=== PATIENT | male | born 1960 | race Caucasian/White ===

== ENCOUNTER 2017-03-28 13:00 | Inpatient (IN) | payer MEDICAID, OTHER, SELFPAY ==
[~2017-03-28] VITALS: Ht 180.3 cm; Wt 65.8 kg
[2017-03-28] MEDS ORDERED: SODIUM CHLORIDE 0.9% 1000 ML IV ONE (14:15)
[2017-03-28] MEDS ORDERED: OXAZEPAM 10 MG CAP PO ONE (14:30)
[2017-03-28] MEDS ORDERED: MULTIVITAMIN -ADULT INJECTION 10 ML, THIAMINE INJection 100 MG, FOLIC ACID 1 MG in NS 1... IV ONE (14:30)
[2017-03-28] MEDS ORDERED: LORazepam 2 MG/ML VIAL (J2060) IV STA ×2 (14:32→15:49)
--- NOTE | 2017-03-28 14:35 | REP ---
CT Head without contrast HISTORY: Drug overdose COMPARISON: None There is no intraparenchymal hemorrhage, acute infarct, mass or midline shift. The ventricular system and cortical sulci are dilated consistent with minimal volume loss. There is no extra cerebral collection. There is no fracture. The visualized sinuses are clear. IMPRESSION: Minimal volume loss. Signed by Garland Bond MD 03/28/2017 02:26 P
[2017-03-28 14:37] LABS: DIFF SLIDE NUMBER 259; MEAN CORPUSCULAR HEMOGLOBIN 35.4 pg (27.0-33.0); MEAN CORPUSCULAR HGB CONC 36.3 g/dl (32.0-36.5); MEAN CORPUSCULAR VOLUME 97.5 fl (80.0-96.0); WHITE BLOOD COUNT 1.4 K/mm3 (4.0-10.0)
[2017-03-28 14:38] LABS: PLATELET COUNT, AUTOMATED 25 k/mm3 (150-450)
[2017-03-28 14:46] LABS: BANDS 17 % (< 11)
[2017-03-28 14:47] LABS: DOHLE BODIES 1+; TOXIC VACUOLATION 2+
[2017-03-28 14:54] LABS: BLOOD UREA NITROGEN 42 MG/DL (7-18); CREATININE FOR GFR 2.16 MG/DL (0.70-1.30); GLOMERULAR FILTRATION RATE 33.7 (>56); GLUCOSE, FASTING 128 MG/DL (70-105)
[2017-03-28 14:55] LABS: ALBUMIN 3.2 GM/DL (3.2-5.2); ALBUMIN/GLOBULIN RATIO 0.73 (1.00-1.93); ALKALINE PHOSPHATASE 49 U/L (45-117); ALT/SGPT 96 U/L (12-78); ANION GAP 11 MEQ/L (8-16); AST/SGOT 426 U/L (15-37); BILIRUBIN,DIRECT 0.1 MG/DL (0.0-0.2); BILIRUBIN,TOTAL 0.6 MG/DL (0.2-1.0); CALCIUM LEVEL 9.3 MG/DL (8.5-10.1); CARBON DIOXIDE LEVEL 21 MEQ/L (21-32); CHLORIDE LEVEL 99 MEQ/L (98-107); POTASSIUM SERUM 3.8 MEQ/L (3.5-5.1); SODIUM LEVEL 131 MEQ/L (136-145); TOTAL PROTEIN 7.6 GM/DL (6.4-8.2)
[2017-03-28 14:58] LABS: INR 1.01
[2017-03-28] MEDS ORDERED: CEFEPIME HCL 1 GM in D5W MINI-BAG PLUS 50 ML IV ONE (15:15)
[2017-03-28] MEDS ORDERED: VANCOMYCIN HCL 1,000 MG, VIAL MATE ADAPTER 1 EACH in D5W 250 ML IV ONE (15:15)
--- NOTE | 2017-03-28 16:32 | REP ---
ABDOMINAL ULTRASOUND: HISTORY: Renal failure. There are no filling defects in the gallbladder. The gallbladder wall measures 2.6 mm. The common bile duct measures 4.8 cm. The liver is slightly increased in echogenicity. The pancreas and spleen are normal in echogenicity. The kidneys are normal in echogenicity. The right kidney measures 5.8 cm in transverse x 4.5 cm in AP x 11.1 cm in cephalocaudal dimensions. A cyst is present in the right kidney. The cyst measures 1.3 x 0.7 x 1.3 cm. The left kidney measures 5.2 cm in transverse x 4 cm in AP x 9.1 cm in cephalocaudal dimensions. There is no hydronephrosis or mass. IMPRESSION: 1.3 cm right renal cyst. Signed by Garland Bond MD 03/28/2017 04:35 P
[2017-03-28 17:09] LABS: MICROSCOPIC INDICATED? MAN YES (NO)
[2017-03-28 17:10] LABS: ABG HCO3 18.3 MEQ/L (22.0-26.0); ABG PARTIAL PRESSURE CO2 29.6 mmHg (35.0-45.0); ABG PARTIAL PRESSURE O2 94.7 mmHg (75.0-100.0); ABG STANDARD HCO3 20.4 MEQ/L (22.0-26.0); ABG TOTAL CO2 19.2 MEQ/L (22.0-29.0); ABG pH (ARTERIAL) 7.408 UNITS (7.350-7.450)
[2017-03-28 17:12] LABS: REASON FOR REVIEW COMPREHENSIVE REVIEW
--- NOTE | 2017-03-28 17:13 | REP ---
CT study of the chest without contrast: History: Sepsis. CT findings: The patient is oblique somewhat to the left. No infiltrate is seen in the lung [place]. No pleural or pericardial effusion is noted. No hilar or mediastinal mass or adenopathy is seen. No bony destructive lesion is seen. Impression: No active disease. There is mild emphysematous change in the upper lung zones and apices bilaterally. Signed by Evan Vargas MD 03/29/2017 09:36 A
[2017-03-28 17:19] LABS: TRANSITIONAL EPI CELLS, URINE SMALL AMOUNT /hpf
[2017-03-28 17:20] LABS: RBC, URINE 0-1 /hpf (0-3)
[2017-03-28 17:21] LABS: BACTERIA, URINE NONE SEEN
[2017-03-28 17:22] LABS: HYALINE CAST, URINE 15-20 /lpf (0-1); MICROSCOPIC EXAM PERFORMED; WAXY CAST, URINE 0-1 /lpf
--- NOTE | 2017-03-28 17:23 | REP ---
CT abdomen and pelvis without IV or oral contrast: History: Sepsis. No comparison CT study. CT findings: The liver and the spleen are normal in size and homogeneous in texture. No adrenal lesion is seen. The kidneys show no evidence of hydronephrosis, cyst or mass. No pancreatic abnormality is observed. The gallbladder is small and contracted in appearance. Vascular calcification is noted in a normal caliber aorta. Heavy vascular calcification is seen in the iliac arteries bilaterally. There is a Burger catheter in the urinary bladder. No abdominal wall defect is seen. There is no evidence of free intraperitoneal air. There are degenerative disc changes at L4-5 and L5-S1 with vacuum phenomenon in these discs. Lesser changes are noted at L3-4. No bony destructive lesion is seen. Incidental note is made of an old ununited fracture of the tip of the transverse process of the left side at L2. There is no CT evidence of diverticulosis or diverticulitis. A normal appendix is seen posterior to the cecal tip. Impression: No acute intra-abdominal abnormality. Heavy vascular calcification. A Burger catheter in the urinary bladder. No evidence of obstruction. Signed by Evan Vargas MD 03/29/2017 09:36 A
[2017-03-28] MEDS: NS 1,000 ML IV SCH (17:27)
[2017-03-28 17:29] LABS: METHADONE URINE NEGATIVE (NEGATIVE)
[2017-03-28] MEDS ORDERED: LORazepam 2 MG/ML VIAL (J2060) IV PRN (17:30)
[2017-03-28] MEDS ORDERED: ONDANSETRON 4MG/2ML VIAL (J2405) IV PRN (17:30)
[2017-03-28] MEDS: PIPERACILLIN/TAZOBACTAM SOD 2.25 GM in D5W MINI-BAG PLUS 50 ML IV SCH (18:00)
[2017-03-28] MEDS ORDERED: OXAZEPAM 15 MG CAP PO SCH (18:00)
[2017-03-28 18:12] LABS: PERCENT SATURATION 61.2 % (19.7-37.4)
--- NOTE | 2017-03-28 18:17 | HPEPDOC ---
General Date of Admission 03/28/17 Chief Complaint The patient is a 56-year-old male admitted with a reason for visit of AMS. History of Present Illness 56-year-old male with no significant past medical history was brought to the ER after he was found to be increasingly lethargic with complaints of generalized weakness and imbalance. The extent of this HPI was obtained after review of the patient's chart and from conversation with ER personnel, as the patient is currently drowsy after receiving Ativan in the ER. Apparently, the patient told our staff that he has been having issues with imbalance over the last 4 months. He states that he has had multiple falls during this time. In addition, the patient stated that he has not been eating much lately, and admits to drinking as many as 6, twenty four ounce beers daily for the past 20+ years. He notes that his last drink was yesterday evening. He also states he smokes 2-3 packs per day of tobacco for the same amount of time. The patient's cousin, who is at bedside states that the patient lives in very deplorable conditions, and he has not been taking care of himself. He states that the patient has probably never seen a primary care doctor before. Of note, the patient recently lost his job and has been in a "downward spiral" according to the patient's cousin. The patient apparently denied any suicidal or homicidal ideations as per the ER staff. In the ER, the patient's labs were remarkable for neutropenia, thrombocytopenia , and an elevated troponin level. An EKG revealed slight ST depressions in the lateral leads. In addition, the patient was noted to be febrile with a temperature of 100.7. The patient will be admitted to the hospitalist service for further evaluation and management. Home Medications No Active Prescriptions or Reported Meds Allergies Coded Allergies: No Known Allergies (Unverified , 03/28/17) Past Medical History Medical History As noted above. Surgical History Unable to obtain secondary to patient's clinical condition Family History Unable to obtain secondary to patient's clinical condition Social History * Smoker: other (Smokes 2-3 PPD of tobacco for the last 20+ years) Alcohol: heavy (drinks 6, 24 ounce beers daily for the past 20+ years) Drugs: other (Unable to obtain secondary to patient's clinical condition) Unable to obtain secondary to patient's clinical condition Review of Symptoms Other systems Unable to fully and reliably obtain secondary to patient's clinical condition Physical Examination General Exam: Positive: No Acute Distress, Other (patient laying in bed, sleeping, not arousable to verbal or physical stimulation.) ENT Exam: Positive: Atraumatic, Other ENT (dry mucous membranes) Neck Exam: Negative: JVD Chest Exam: Positive: Clear to auscultation, Normal air movement Heart Exam: Positive: Tachycardic, Normal S1, Normal S2 Telemetry: Positive: Sinus Abdomen Exam: Positive: Soft, Negative: Tenderness Extremity Exam: Negative: Tenderness, Swelling Vital Signs Vital Signs Date Time Temp Pulse Resp B/P (MAP) Pulse Ox O2 Delivery O2 Flow Rate FiO2 03/28/17 17:18 114 173/81 (111) 93 03/28/17 13:00 100.7 16 Room Air Laboratory Data Labs 24H Laboratory Tests 2 03/28/17 13:40: Neutrophils 50, Band Neutrophils 17H, Lymphocytes (Manual) 28, Monocytes (Manual ) 3, Metamyelocytes 2H, Toxic Vacuolation 2+, Dohle Bodies 1+, Platelet Estimate MARKED DECREASE, Prothrombin Time 13.4, Prothromb Time International Ratio 1.01, Anion Gap 11, Glomerular Filtration Rate 33.7L, Calcium Level 9.3, Aspartate Amino Transf (AST/SGOT) 426H, Alanine Aminotransferase (ALT/SGPT) 96H , Alkaline Phosphatase 49, Total Bilirubin 0.6, Direct Bilirubin 0.1, Total Creatine Kinase 2805H, Troponin I 1.06H, Total Protein 7.6, Albumin 3.2, Albumin /Globulin Ratio 0.73L, Thyroid Stimulating Hormone (TSH) 1.390, Salicylates Level 5.2, Acetaminophen Level < 2.0L, Ethyl Alcohol Level < 0.003 03/28/17 15:10: Lactic Acid Level 3.1*H 03/28/17 16:38: Total Creatine Kinase 2707H, Troponin I 0.77#H, Differential Slide Review Report , Differential Pathologist's Review COMPREHENSIVE REVIEW, Peripheral Blood Smear Path Consult PERIPHERAL SMEAR, Creatine Kinase MB 8.2H, Creatine Kinase MB Relative Index 0.30 03/28/17 16:44: Bedside Urine Color (LAB) YELLOW, Bedside Urine Appearance (LAB) HAZYH, Bedside Urine pH (LAB) 5.0, Bedside Urine Specific [place] (LAB 1.025, Bedside Urine Protein (LAB) 2+H, Bedside Urine Glucose (UA) NEGATIVE, Bedside Urine Ketones ( LAB) NEGATIVE, Bedside Urine Blood POSITIVEH, Bedside Urine Nitrite (LAB) NEGATIVE, Bedside Urine Bilirubin (LAB) NEGATIVE, Bedside Urine Urobilinogen ( LAB) NORMAL, Bedside Urine Leukocyte Esterase (L NEGATIVE, Urine WBC 7-10H, Urine RBC 0-1, Urine Squamous Epithelial Cells , Urine Transitional Epithelial Cells SMALL AMOUNTH, Urine Bacteria NONE SEEN, Urine Hyaline Casts 15-20H, Urine Waxy Casts 0-1, Urine Mucus LARGE AMOUNTH, Urine Amorphous Sediment MOD AMOUNTH, Urine Sediment Examination PERFORMED, Urine Granular Casts 10-15H, Urine Amphetamines Screen NEGATIVE, Urine Benzodiazepines Screen NEGATIVE, Urine Opiates Screen NEGATIVE, Urine Methadone Screen NEGATIVE, Urine Barbiturates Screen NEGATIVE, Urine Phencyclidine Screen NEGATIVE, Urine Cocaine Metabolite Screen NEGATIVE, Urine Cannabinoids Screen POSITIVEH 03/28/17 16:57: Blood Gas Bicarbonate Standard 20.4L, Arterial Blood pH 7.408, Arterial Blood Partial Pressure CO2 29.6L, Arterial Blood Partial Pressure O2 94.7, Arterial Blood Total CO2 19.2L, Arterial Blood HCO3 18.3L, Arterial Blood Base Excess - 5.0L, Arterial Blood Oxygen Saturation 97.2 03/28/17 17:10: Ammonia 24 CBC/BMP Laboratory Tests 03/28/17 13:40 Red Blood Count 5.19, Mean Corpuscular Volume 97.5 H, Mean Corpuscular Hemoglobin 35.4 H, Mean Corpuscular Hemoglobin Concent 36.3, Red Cell Distribution Width 13.0 Microbiology Microbiology 03/28/17 Blood Culture, Received Pending 03/28/17 Blood Culture, Received Pending 03/28/17 Urine Culture, Received Pending Plan / VTE VTE Prophylaxis Ordered?: Yes (SCDs/TEDs) Plan / Urinary Catheter Reason for insertion/continuin: Critical Pt monitoring Plan Plan Neutropenic Fever of Unclear Origin We will admit the patient to the ICU T. Max 100.7 in the ER No overt source of infection noted MRI Brain, CT Chest and Abdomen ordered UA, Blood Cultures, Urine Culture, Sputum Culture, Resp Panel ordered Patient has been empirically started on Vanco/Zosyn for now We will continue to trend the patient's fever curve, follow up cultures, and treat with IVF Hydration Lactic Acidosis 2/2 Above IVF Hydration Ordered Will follow up Lactic Acid Level Neutropenia, Thrombocytopenia Possibly 2/2 Long Standing Alcohol Abuse Patient empirically treated with Abx No indication for transfusion at this time Peripheral smear ordered Elevated Troponin EKG notable for borderline ST Depression in the lateral leads-->No previous EKG available for comparison, we will repeat an EKG in the morning Initial Troponin 1.06--we will serially trend this Possibly 2/2 Demand Ischemia from metabolic encephalopathy The case was discussed with our on-call city comptroller Dr. [place] by the ER physician, at this point there is no indication for a cardiac catheterization as mentioned in light of the patient's acute kidney injury The patient is not a candidate for any antiplatelet or anticoagulant therapy given thrombocytopenia 2-D echocardiogram ordered We will continue to monitor the patient on telemetry for now Acute kidney injury Unknown serum creatinine baseline IV fluid hydration has been ordered No signs of hydroureteronephrosis on CT scan of the abdomen We will renally dose medications Hold nephrotoxins Urine electrolyte ordered The patient has made about 400 mL of urine here in the ER We will follow up with the patient's serum creatinine in the a.m. with a repeat BMP Alcohol abuse Withdrawal precautions IV fluid hydration, thiamine, and folic acid has been ordered Serax 20 mg every 8 hours scheduled, 10 mg every 4 hours when necessary, and 1 mg of Ativan every 4 hours when necessary for agitation We will continue to monitor the patient's clinical status Transaminitis likely secondary to above No biliary obstruction noted on imaging We will continue to monitor patient's LFTs DVT prophylaxis SCDs/TEDs (Not on AC 2/2 Thrombocytopenia) This patient will be admitted under the service of Dr. Rich, who will begin to follow the patient on 03/29/17 GENO DE LA CRUZ MD Mar 28, 2017 18:17
[2017-03-28 18:55] LABS: FOLATE 23.7 NG/ML (>5.4)
[2017-03-28] MEDS: OXAZEPAM 10 MG CAP PO PRN (19:01)
[2017-03-28] MEDS: ACETAMINOPHEN TAB 650MG DOSE (2X325MG) PO PRN (19:01)
[2017-03-28 20:17] VITALS: BP 134/89
--- NOTE | 2017-03-28 20:25 | PHACANCOPD ---
PHARMACY VANCOMYCIN DOSING Pt Demographics Demographics Patient Age:56 , Weight:65.700 , Gender: male Adjusted Body Weight Events Past 24 Hours Events Past 24 Hours: YES: Change in CrCl, Fever, Pending Diagnostics Vancomycin Vancomycin indication: SEPSIS, FUO, NEUTROPENIA Vancomycin Target Ranges: 15-20 mcg/ml Vancomycin Load Y/N: No Load Dose Date Time Vancomycin Load Dose: Date: Time: Vancomycin Dose Date: 03/28/17. Current Vancomycin Dose: [1GM GIVEN IN THE ER @ 15:30]. WE WILL INITIATE VANCO 1GM IV Q12H starting at 23:00 THIS EVENING. Intermittent Dosing?: No Labs Labs Laboratory Tests 03/28/17 13:40 Red Blood Count 5.19, Mean Corpuscular Volume 97.5 H, Mean Corpuscular Hemoglobin 35.4 H, Mean Corpuscular Hemoglobin Concent 36.3, Red Cell Distribution Width 13.0 Micro Microbiology 03/28/17 Blood Culture, Received Pending 03/28/17 Blood Culture, Received Pending 03/28/17 Urine Culture, Received Pending Creatinine Clearance Date:03/28/17. Creatinine Clearance: [35ML/MIN]. Assessment and Plan Maintaining Current Dose?: Yes Reason for dose change: No Dose Change Pharmacist Note Pharmacist Note Date: 03/28/17. Pharm.D. note: 56YO MALE, 65.7KG in WEIGHT, 71" in HEIGHT ADMITTED WITH SEPSIS, FUO & NEUTROPENIA. ZOSYN 2.25GM IV Q6H INITIATED AT 18: 00. VANCO 1GM IV x1 GIVEN IN THE ER AT 15:30 THIS AFTERNOON. SCR 2.16 mcg/ml ( BASELINE UNKNOWN). DUE TO HIS PRESENTATION AND HIS AGE WE WILL CONTINUE WITH VANCO 1GM IV Q12H STARTING AT 23:00 TONIGHT. WE WILL OBTAIN A VANCO TROUGH PRIOR TO TOMORROW MORNINGS DOSE AND MONITOR ANY NOTED INCREASE/DECREASE IN HIS SCR. JORDI, Pharm.D. [facility] Mar 28, 2017 20:25
[2017-03-28 21:00] VITALS: BP 129/70
[2017-03-28] MEDS: OXAZEPAM 10 MG CAP PO SCH (21:43)
[2017-03-28 22:00] VITALS: BP 122/76
[2017-03-28 23:00] VITALS: BP 143/74
[2017-03-28] MEDS: VANCOMYCIN HCL 1,000 MG, VIAL MATE ADAPTER 1 EACH in D5W 250 ML IV SCH (23:05)
[2017-03-29] VITALS (21 sets, daily range): BP systolic 108–153; BP diastolic 68–85
[2017-03-29] MEDS: PIPERACILLIN/TAZOBACTAM SOD 2.25 GM in D5W MINI-BAG PLUS 50 ML IV SCH ×4 (01:06→17:59)
[2017-03-29] MEDS: OXAZEPAM 10 MG CAP PO PRN (01:20)
[2017-03-29] MEDS ORDERED: LORazepam 2 MG/ML VIAL (J2060) IV STA (01:32)
[2017-03-29] MEDS: ACETAMINOPHEN TAB 650MG DOSE (2X325MG) PO PRN ×2 (04:11→16:11)
[2017-03-29] MEDS: LORazepam 2 MG/ML VIAL (J2060) IV PRN ×2 (04:24→11:30)
[2017-03-29] MEDS: NS 1,000 ML IV SCH ×2 (05:19→11:31)
[2017-03-29] MEDS: OXAZEPAM 10 MG CAP PO SCH ×2 (05:20→05:56)
[2017-03-29 05:25] LABS: DIFF SLIDE NUMBER 84; MEAN CORPUSCULAR HGB CONC 35.3 g/dl (32.0-36.5); MEAN CORPUSCULAR VOLUME 98.9 fl (80.0-96.0); RED CELL DISTRIBUTION WIDTH 13.3 % (11.5-14.5); WHITE BLOOD COUNT 1.7 K/mm3 (4.0-10.0)
[2017-03-29 05:26] LABS: INR 0.98
[2017-03-29 05:37] LABS: ALBUMIN 2.4 GM/DL (3.2-5.2); ALBUMIN/GLOBULIN RATIO 0.73 (1.00-1.93); BILIRUBIN,TOTAL 0.5 MG/DL (0.2-1.0); CALCIUM LEVEL 7.4 MG/DL (8.5-10.1); CREATININE FOR GFR 1.41 MG/DL (0.70-1.30); GLOMERULAR FILTRATION RATE 55.2 (>56); MAGNESIUM LEVEL 2.1 MG/DL (1.8-2.4); POTASSIUM SERUM 3.5 MEQ/L (3.5-5.1); TOTAL PROTEIN 5.7 GM/DL (6.4-8.2)
[2017-03-29 05:49] LABS: PLATELET COUNT, AUTOMATED 26 k/mm3 (150-450)
[2017-03-29 06:04] LABS: BANDS 7 % (< 11)
[2017-03-29] MEDS: THIAMINE HCL 200 MG/2 ML VIAL (J3411) IM SCH (08:31)
--- NOTE | 2017-03-29 08:35 | REP ---
MRA BRAIN WITHOUT CONTRAST: HISTORY: Infarction. 3D [id number]-vfmnct MR angiograph was performed at the level of the nulato of [place]. There is no aneurysm or arteriovenous malformation. Mild atherosclerotic disease involves the cavernous internal carotid arteries. Major intracranial vessels are patent. The vertebral arteries are equal in size. IMPRESSION: 1. There is no aneurysm or arteriovenous malformation. 2. Atherosclerotic disease as described above. Signed by Garland Bond MD 03/29/2017 08:42 A
--- NOTE | 2017-03-29 08:37 | REP ---
MR BRAIN WITHOUT CONTRAST: HISTORY: Drug overdose. COMPARISON: CT 03/28/2017. Areas of increased signal intensity on T2-weighted images are present in the periventricular and subcortical white matter. This represents small vessel ischemic disease. There is on intraparenchymal hemorrhage, infarct, mass, or midline shift. The ventricular system and cortical sulci are dilated consistent with minimal volume loss. There is no extracerebral collection. Mucosal thickening is present in the maxillary sinuses. IMPRESSION: 1. Small vessel ischemic disease. 2. Minimal volume loss. Signed by Garland Bond MD 03/29/2017 08:41 A
[2017-03-29] MEDS ORDERED: FOLIC ACID 1 MG in NS 50 ML IV SCH (09:00)
[2017-03-29] MEDS: NICOTINE 14 MG/24 HR TRANSDERMAL TD SCH (09:52)
[2017-03-29] MEDS: FOLIC ACID 1 MG in NS 50 ML IV SCH (09:52)
[2017-03-29 10:14] LABS: ERYTHROCYTE SEDIMENTATION RATE 3 mm/hr (0-20)
[2017-03-29] MEDS: VANCOMYCIN HCL 1,000 MG, VIAL MATE ADAPTER 1 EACH in D5W 250 ML IV SCH ×2 (11:41→22:53)
--- NOTE | 2017-03-29 11:53 | ECGEPIP ---
Stationary ECG Study [facility] - ED Test Date: 2017-03-28 Pat Name: COLETTE FLYNN Department: Room: [place] [address] Gender: M Cam Specialist: SHIRA : 1960 Requested By: RITO RAGLAND Order Number: [id number] Reading MD: Laurie Loredo Measurements Intervals [place] Rate: 125 P: 78 LA: 137 QRS: 72 QRSD: 86 T: 73 QT: 282 QTc: 407 Interpretive Statements SINUS TACHYCARDIA MODERATE VOLTAGE CRITERIA FOR LVH, CONSIDER NORMAL VARIANT POSSIBLE SEPTAL MYOCARDIAL INFARCTION, OF INDETERMINATE AGE NO PRIOR FOR COMPARISON Electronically Signed On 03-29-2017 11:53:05 EDT by Laurie Loredo
--- NOTE | 2017-03-29 12:48 | PHACANCOPD ---
PHARMACY VANCOMYCIN DOSING Pt Demographics Demographics Patient Age:56 , Weight:61.900 , Gender: male Adjusted Body Weight Events Past 24 Hours Events Past 24 Hours: YES: Pending Diagnostics Vancomycin Vancomycin indication: SEPSIS, FUO, NEUTROPENIA Vancomycin Target Ranges: 15-20 mcg/ml Vancomycin Load Y/N: No Load Dose Date Time Vancomycin Load Dose: Date: Time: Vancomycin Dose Date: 03/28/17. Current Vancomycin Dose: [1GM GIVEN IN THE ER @ 15:30]. WE WILL INITIATE VANCO 1GM IV Q12H starting at 23:00 THIS EVENING. Intermittent Dosing?: No Labs Micro Microbiology 03/28/17 Blood Culture, Received Pending 03/28/17 Blood Culture, Received Pending 03/28/17 Urine Culture - Final, Complete Creatinine Clearance Date:03/28/17. Creatinine Clearance: [35ML/MIN]. Assessment and Plan Maintaining Current Dose?: Yes Reason for dose change: No Dose Change Pharmacist Note Pharmacist Note 03/29/17: Trough today resulted at 7.8mcg/ml, drawn prior to the 3rd dose. An additional 1g vanco dose will be given today @13, and then the patient will resume her maintenance regimen of 1g IV Q12H. The patient has been febrile in the past 24 hours, and pulse and CRP are elevated. Bands are now WNL. Blood cultures are still pending. A follow-up trough has been scheduled for 03/31/17 @ 1000. Date: 03/28/17. Pharm.D. note: 56YO MALE, 65.7KG in WEIGHT, 71" in HEIGHT ADMITTED WITH SEPSIS, FUO & NEUTROPENIA. ZOSYN 2.25GM IV Q6H INITIATED AT 18: 00. VANCO 1GM IV x1 GIVEN IN THE ER AT 15:30 THIS AFTERNOON. SCR 2.16 mcg/ml ( BASELINE UNKNOWN). DUE TO HIS PRESENTATION AND HIS AGE WE WILL CONTINUE WITH VANCO 1GM IV Q12H STARTING AT 23:00 TONIGHT. WE WILL OBTAIN A VANCO TROUGH PRIOR TO TOMORROW MORNINGS DOSE AND MONITOR ANY NOTED INCREASE/DECREASE IN HIS SCR. JORDI, Pharm.D. [facility] Mar 29, 2017 12:48
[2017-03-29] MEDS ORDERED: VANCOMYCIN HCL 1,000 MG, VIAL MATE ADAPTER 1 EACH in D5W 250 ML IV ONE (13:00)
[2017-03-29] MEDS: OXAZEPAM 15 MG CAP PO SCH ×3 (14:00→22:53)
--- NOTE | 2017-03-29 15:10 | IPN ---
DATE: 03/29/2017 SUBJECTIVE: The patient is seen and examined in the room today. The patient is more awake and alert, able to answer some of the questions. However, there is still some sign that the patient is still experiencing some degree of confusion. 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 No events were reported on telemetry. OBJECTIVE: VITAL SIGNS: Temperature is 98.8, pulse 106, respiratory rate 20, blood pressure 108/75, pulse oximetry 98% with two liters nasal cannula. GENERAL: The patient is alert and awake. The patient is oriented to name and place and the year; however, there is some sign of disorientation. HEENT: Normocephalic. Extraocular motor grossly intact. Very dry oral mucosa. CARDIOVASCULAR: Positive S1, S2. Regular rate. LUNGS: Clear to auscultation bilaterally. ABDOMEN: Soft, nontender, nondistended. Bowel sounds present. No rebound or guarding. EXTREMITIES: No edema. No sign of cyanosis. LABORATORY DATA: WBC 11.7, hemoglobin 15.8, hematocrit 44.6, platelet count 226. Sodium is 138, potassium 3.5, chloride 108, carbon dioxide 20, BUN 26, creatinine 1.41, GFR is 55.2, fasting glucose 88, calcium 7.4, magnesium 2.1. Total bilirubin is 0.5, AST is 273, ALT 69, ammonia level is 37, alkaline phosphatase 39. Total CK is 1911. Troponin I is 0.046. C-reactive protein is 16.9, total protein 5.7, albumin 2.4. ASSESSMENT AND PLAN: 1. Altered mental status. It could be due to patient's acute infection. It could be due to the patient's chronic alcohol use. The patient started to have some elevated ammonia level. The patient is being treated empirically on antibiotics. The patient is on intravenous (IV) support. The patient continues to improve. 2. Severe leukopenia and thrombocytopenia. Is possibly due to patient's significant alcohol history. However, hepatitis panel has also been ordered. Peripheral smear did not show any significant findings. I have discussed the case with Dr. Reynolds. She recommends to continue to treat the patient's acute infection, and she recommends sending out the full cytometry to rule out leukemia. If the patient's leukopenia and thrombocytopenia does not improve within a few days, we will pursue malignancy workup. 3. Acute kidney injury most likely secondary to severe dehydration. The patient has been on aggressive resuscitation. The patient's kidney function is improving. We do not have any record of the patient in the past. We do not know his baseline. We will continue to monitor. 3. Elevated troponin without chest pain. Possibly due to patient's acute illness and distress. Three sets of troponin are being measured. The patient continues to have improvement. 4. Alcohol abuse. The patient has been on scheduled Serax, as needed Serax, and as needed IV Ativan. Currently, the patient does not have any withdrawal symptoms. We will continue to monitor. The patient is on folic acid, thiamine, and multivitamin. 5. History of marijuana use. During admission, the patient tested positive for marijuana. Will continue to monitor. 6. Neutropenic fever. At admission, the patient had a temperature of 101.1. The patient has blood cultures pending. Urine culture came back negative. There are no findings on the CT of the chest. We do not have any confirmatory source for the patient's fever and elevated C-reactive protein (CRP). The patient is neutropenic. 7. Deep venous thrombosis (DVT) prophylaxis. The patient has severe thrombocytopenia. The patient is on thromboembolism deterrent stockings (TEDs), sequential compression devices.
[2017-03-30] VITALS (13 sets, daily range): BP systolic 129–158; BP diastolic 58–89
[2017-03-30] MEDS: PIPERACILLIN/TAZOBACTAM SOD 2.25 GM in D5W MINI-BAG PLUS 50 ML IV SCH ×5 (00:23→22:40)
[2017-03-30] MEDS: LORazepam 2 MG/ML VIAL (J2060) IV PRN ×2 (00:43→22:52)
[2017-03-30 04:50] LABS: DIFF SLIDE NUMBER 40; MEAN CORPUSCULAR HEMOGLOBIN 35.2 pg (27.0-33.0); MEAN CORPUSCULAR HGB CONC 35.3 g/dl (32.0-36.5); MEAN CORPUSCULAR VOLUME 99.9 fl (80.0-96.0); RED CELL DISTRIBUTION WIDTH 13.5 % (11.5-14.5); WHITE BLOOD COUNT 4.4 K/mm3 (4.0-10.0)
[2017-03-30 04:54] LABS: INR 0.95
[2017-03-30 04:56] LABS: PLATELET COUNT, AUTOMATED 29 k/mm3 (150-450)
[2017-03-30 05:03] LABS: ALBUMIN 2.2 GM/DL (3.2-5.2); ALBUMIN/GLOBULIN RATIO 0.79 (1.00-1.93); ALKALINE PHOSPHATASE 41 U/L (45-117); ALT/SGPT 63 U/L (12-78); ANION GAP 7 MEQ/L (8-16); AST/SGOT 170 U/L (15-37); BILIRUBIN,TOTAL 0.6 MG/DL (0.2-1.0); BLOOD UREA NITROGEN 18 MG/DL (7-18); CALCIUM LEVEL 7.1 MG/DL (8.5-10.1); CARBON DIOXIDE LEVEL 25 MEQ/L (21-32); CHLORIDE LEVEL 109 MEQ/L (98-107); CREATININE FOR GFR 1.19 MG/DL (0.70-1.30); GLOMERULAR FILTRATION RATE > 60.0 (>56); GLUCOSE, FASTING 88 MG/DL (70-105); POTASSIUM SERUM 3.7 MEQ/L (3.5-5.1); SODIUM LEVEL 141 MEQ/L (136-145)
[2017-03-30] MEDS: NS 1,000 ML IV SCH ×3 (05:17→17:58)
[2017-03-30] MEDS: OXAZEPAM 15 MG CAP PO SCH ×3 (05:17→20:39)
[2017-03-30] MEDS: FOLIC ACID 1 MG in NS 50 ML IV SCH (08:47)
[2017-03-30] MEDS: THIAMINE HCL 200 MG/2 ML VIAL (J3411) IM SCH (08:47)
[2017-03-30] MEDS: NICOTINE 14 MG/24 HR TRANSDERMAL TD SCH (08:48)
--- NOTE | 2017-03-30 09:43 | EEG ---
DATE OF EE03/29/2017 REFERRING PHYSICIAN: Dr. Fiordaliza Rich DIAGNOSIS: Altered mental status. EEG NUMBER: [id number]. HISTORY: Patient is a 56-year-old man who was admitted at [facility] due to altered mental status and has history of alcoholism. He drinks 24 beers a day. He is currently on thiamine, cefepime, vancomycin, folic acid, Zosyn, oxazepam, lorazepam, etc. TECHNICAL DESCRIPTION: This digital EEG was recorded by 21 scalp, ear and two EKG electrodes and was reviewed in bipolar and referential montages following reformatting in 10-20 international electrode placement system. INTERPRETATION: The patient was noted to be in awake state during this EEG. He is confused and rambling about random things. He is unable to follow commands. Background rhythm consisted of 6-7 Hz theta activity with superimposed excessive beta activity in frontal and central head regions. No sleep was achieved. Hyperventilation could not be performed. Photic stimulation remained unremarkable. EKG revealed normal sinus rhythm. No focal, lateralizing or epileptiform abnormalities were seen. No clinical or electrographic seizures were recorded. CONCLUSION: This EEG in awake state is abnormal due to presence of mild generalized slowing and disorganization of background consistent with nonspecific diffuse cerebral dysfunction such as seen in encephalopathy due to multiple potential causes including toxic, metabolic, medication related or infectious etiologies. Excessive beta activity is due to medication effect.
[2017-03-30] MEDS: VANCOMYCIN HCL 1,000 MG, VIAL MATE ADAPTER 1 EACH in D5W 250 ML IV SCH ×2 (10:20→22:39)
--- NOTE | 2017-03-30 10:39 | ECGEPIP ---
Stationary ECG Study [facility] Test Date: 2017-03-29 Pat Name: COLETTE FLYNN Department: Room: [place] [address] Gender: M Host/Hostess Head: CASSIE : 1960 Requested By: GENO DE LA CRUZ Order Number: [id number] Reading MD: Abundio Johnson Measurements Intervals [place] Rate: 100 P: VT: 0 QRS: 46 QRSD: 90 T: 75 QT: 312 QTc: 404 Interpretive Statements Sinus tachycardia SEPTAL MYOCARDIAL INFARCTION, OF INDETERMINATE AGE Rate decreased from 03-28-17 Electronically Signed On 03-30-2017 10:39:18 EDT by Abundio Johnson
--- NOTE | 2017-03-30 10:48 | IPN ---
DATE: 03/30/2017 SUBJECTIVE: The patient is seen and examined in the room today. The patient today shows some confusion. Patient knows he is in [place], but he does not remember the year, does not remember this is [facility]. Not able to articulate an oral word multiple times. No events were detected on cardiac telemetry. OBJECTIVE: VITAL SIGNS: Temperature is 98.2, pulse 97, respirations 22, blood pressure 132/69, pulse oximetry 95% in room air. GENERAL: Patient is not oriented. HEENT: Normocephalic, atraumatic. Extraocular motors grossly intact. Very dry oral mucosa. CARDIOVASCULAR: Positive S1, S2. Regular rate. LUNGS: Clear to auscultation bilaterally. ABDOMEN: Soft, nontender, nondistended. Bowel sounds present. No rebound or guarding. EXTREMITIES: No edema. No sign of cyanosis. LABORATORY DATA: WBC 4.4, hemoglobin 14.3, hematocrit 40.5, platelet count 229. Sodium is 141, potassium 3.7, chloride 109, carbon dioxide 25, BUN 18, creatinine 1.19, GFR is greater than 60, fasting glucose 88, calcium 7.1. Total bilirubin is 0.6. AST is 170, ALT 63, alkaline phosphatase 41, ammonia level is less than 10. ASSESSMENT AND PLAN: 1. Neutropenic fever. Empirically patient is started on vancomycin and Zosyn. Blood cultures are pending. Urine cultures are negative. Chest CT showed no active disease. Cardiac echo was ordered. Since yesterday at 4:00 p.m. the patient has not had any recurrence of the fever. At that time, the patient had a temperature of 101.6. The patient's neutropenia is likely secondary to alcohol use. The case was discussed with oncologist, Dr. Reynolds, who recommended observation and treating the patient's acute illnesses. Today, the patient showed spontaneous increase of WBC. Currently WBC is in the normal range. 2. Thrombocytopenia. Most likely due to bone marrow suppression from alcohol and the patient started to some increased platelet count. No signs of active bleeding at this moment. 3. Altered mental status. Initially, patient had a mild elevation of ammonia level. Today, ammonia level is within normal range. MRI and CT scan of the brain are completely negative. Will continue to monitor. The patient's altered mental status could be due to the patient's chronic alcohol use. Since admission, the patient demonstrated waxing and waning of the mental status. 4. Acute kidney injury most likely secondary to severe dehydration. The patient has been on aggressive IV support. Renal function is improving. We do not know the patient's baseline. Continue to monitor. 5. Elevated troponin without chest pain. Suspect demand ischemia. The Troponin has been improving. 6. Alcohol abuse. The patient is on scheduled Serax. Patient also has as needed IV Ativan and as needed Serax. Will try to monitor the patient for withdrawal symptoms. Patient on folic acid, thiamine, and multivitamin. 7. History of marijuana use. 8. Deep venous thrombosis (DVT) prophylaxis. The patient has severe thrombocytopenia. The patient is on thromboembolism deterrent stockings (TEDS) and sequential compression devices.
--- NOTE | 2017-03-30 15:20 | ECHO ---
DATE OF PROCEDURE: 03/29/2017 REFERRING PHYSICIAN: Yuval Hansen MD INDICATION: Chest pain. HEIGHT: 100 cm WEIGHT: 60 kg 2D MEASUREMENTS: Aortic root: 3.0 cm Left atrium: 0.7 cm Ventricular septum: 0.89 cm Posterior wall: 1.16 cm Left ventricle diastole: 4.9 cm LVOT: 1.9 cm Inferior vena cava: 1.3 cm (more than 50% respiratory variation). DOPPLER MEASUREMENTS: Aortic valve velocity: 174 cm/s LVOT velocity: 89.5 cm/s LVOT VTI: 12.6 cm Very mild mitral regurgitation. Mitral E velocity; 46.4 cm/s Mitral A velocity: 67.1 cm/s Mitral deceleration time: 130 ms Trace tricuspid regurgitation. Pulmonary artery systolic pressure 36 mmHg by pulmonary acceleration time. MITRAL ANNULAR TISSUE DOPPLER: E prime septal: 4.6 cm/s DESCRIPTION: Rhythm was sinus tachycardia. Image quality was fair. No pericardial effusion. This is a 2D, M-mode, color flow Doppler and pulse wave Doppler examination that included mitral annular tissue Doppler. CONCLUSIONS: 1. Normal left ventricle internal dimensions and wall thickness. Normal overall left ventricle (LV) systolic function. Left ventricular ejection fraction (LVEF) 60% by visual estimate. Mild abnormal septal motion with normal wall motion and wall thickening elsewhere. Grade 1 LV diastolic dysfunction (impaired relaxation filling pattern). 2. No pericardial effusion. 3. Mild aortic valve sclerosis of a three-cuspid aortic valve. 4. Suggestive of mild elevation of pulmonary artery systolic pressure. MTDD
[2017-03-30] MEDS: ACETAMINOPHEN TAB 650MG DOSE (2X325MG) PO PRN (16:32)
[2017-03-31] VITALS (8 sets, daily range): BP systolic 141–167; BP diastolic 81–99
[2017-03-31 04:41] LABS: DIFF SLIDE NUMBER 37; MEAN CORPUSCULAR HEMOGLOBIN 34.3 pg (27.0-33.0); MEAN CORPUSCULAR HGB CONC 35.3 g/dl (32.0-36.5); MEAN CORPUSCULAR VOLUME 97.2 fl (80.0-96.0); RED CELL DISTRIBUTION WIDTH 13.5 % (11.5-14.5); WHITE BLOOD COUNT 9.8 K/mm3 (4.0-10.0)
[2017-03-31 04:43] LABS: PLATELET COUNT, AUTOMATED 32 k/mm3 (150-450)
[2017-03-31 04:52] LABS: INR 0.87
[2017-03-31 04:55] LABS: ALBUMIN 1.9 GM/DL (3.2-5.2); ALBUMIN/GLOBULIN RATIO 0.63 (1.00-1.93); ALKALINE PHOSPHATASE 40 U/L (45-117); ALT/SGPT 54 U/L (12-78); ANION GAP 8 MEQ/L (8-16); AST/SGOT 101 U/L (15-37); BILIRUBIN,TOTAL 0.8 MG/DL (0.2-1.0); BLOOD UREA NITROGEN 13 MG/DL (7-18); CALCIUM LEVEL 7.5 MG/DL (8.5-10.1); CARBON DIOXIDE LEVEL 28 MEQ/L (21-32); CHLORIDE LEVEL 106 MEQ/L (98-107); CREATININE FOR GFR 0.96 MG/DL (0.70-1.30); GLOMERULAR FILTRATION RATE > 60.0 (>56); GLUCOSE, FASTING 87 MG/DL (70-105); SODIUM LEVEL 142 MEQ/L (136-145); TOTAL PROTEIN 4.9 GM/DL (6.4-8.2)
[2017-03-31] MEDS: NS 1,000 ML IV SCH ×2 (05:13→16:42)
[2017-03-31] MEDS: OXAZEPAM 15 MG CAP PO SCH (05:24)
[2017-03-31] MEDS: PIPERACILLIN/TAZOBACTAM SOD 2.25 GM in D5W MINI-BAG PLUS 50 ML IV SCH ×4 (05:24→23:12)
[2017-03-31 06:00] LABS: POTASSIUM SERUM 2.8 MEQ/L (3.5-5.1)
[2017-03-31] MEDS: POTASSIUM CHLORIDE 10 MEQ SR TABLET PO SCH ×4 (06:25→17:51)
[2017-03-31 06:35] LABS: EOSINOPHILS 2 % (0-5); NUCLEATED RED BLOOD CELL 1 % (0-0)
[2017-03-31] MEDS: THIAMINE HCL 200 MG/2 ML VIAL (J3411) IM SCH (08:15)
[2017-03-31] MEDS: NICOTINE 14 MG/24 HR TRANSDERMAL TD SCH (08:15)
[2017-03-31] MEDS: FOLIC ACID 1 MG in NS 50 ML IV SCH (08:15)
[2017-03-31] MEDS: VANCOMYCIN HCL 1,000 MG, VIAL MATE ADAPTER 1 EACH in D5W 250 ML IV SCH (10:03)
--- NOTE | 2017-03-31 10:19 | IPN ---
DATE: 03/31/2017 SUBJECTIVE: The patient is seen and examined in the room today. The patient still demonstrates signs of disorientation. Patient does not remember the name of the hospital. Patient thinks that this is 1917. When asked about when was his last drink he stated he is not sure, but it could be 5-6 days ago. The patient lives alone. No events were reported per nursing staff. No cardiac arrhythmia on telemetry. No withdrawal or seizure like activity noted. Per nursing staff, they did observe the patient having some decreased alertness or awakeness with Serax. OBJECTIVE: VITAL SIGNS: Temperature is 98.3, pulse 84, respirations 25, blood pressure 145/83, pulse oximetry 96% in room air. GENERAL: No signs of acute distress. Patient is alert and awake, not fully oriented. HEENT: Normocephalic, atraumatic. Extraocular motors grossly intact. CARDIOVASCULAR: Positive S1, S2. Regular rate. LUNGS: Clear to auscultation bilaterally. ABDOMEN: Soft, nontender, nondistended. Bowel sounds present. No rebound or guarding. EXTREMITIES: No edema. No sign of cyanosis. LABORATORY DATA: WBC 9.8, hemoglobin 14.2, hematocrit 40.3, platelet count 32 Sodium is 142, potassium 3.8, chloride 106, carbon dioxide 28, BUN 13, creatinine 0.96, GFR is greater than 60, fasting glucose 87, calcium 7.5. Total bilirubin is 0.8. AST is 101, ALT 54, alkaline phosphatase 40, CRP is 10.5. Total protein 4.9, albumin 1.9. ASSESSMENT AND PLAN: 1. Neutropenic fevers. Empirically patient is started on vancomycin and Zosyn. All the blood cultures are pending. Urine cultures are negative. Respiratory panel is negative. Chest x-ray and brain scan is negative. Echocardiogram was just resulted, which showed grade 1 diastolic dysfunction, but no other abnormalities noted. Currently we still do not have any source of infection, with empiric antibiotics. The patient's C-reactive protein continues to decrease. Patient has neutropenia most possibly due chronic alcohol consumption. The patient's white count is increasing from 1.4 to 9.8. There is an order to send out flow cytometry. Earlier during admission I had contacted hematology/oncologist Dr. Reynolds, who suspects the patient's thrombocytopenia was likely secondary to chronic alcohol use and if the WBC is not improving they will pursue malignancy workup. Yesterday, the patient had spike of fever at 101. 2. Thrombocytopenia. Most likely secondary to bone marrow suppression from alcohol usage, improving. 3. Altered mental status. Patient has complete resolution of the elevated ammonia level. MRI and CT scan of the brain are completely negative. Continue to monitor. Likely due to chronic alcohol use and malnutrition. 4. Acute kidney injury secondary to severe dehydration. The patient has been on IV fluids. Renal function has returned to baseline. 5. Elevated troponin without chest pain. I did suspect demand ischemia. Troponin was improved. 6. Alcohol abuse. The patient is on scheduled Serax. Will continue to titrate down the scheduled Serax dosage. No withdrawal symptoms have been observed at this moment. We are not sure of the exact time of the patient's last alcohol use. Patient on folic acid, thiamine, and multivitamin. 7. History of marijuana use. 8. Deep venous thrombosis (DVT) prophylaxis. The patient has thrombocytopenia. The patient is on thromboembolism deterrent stockings (TEDS) and sequential compression devices. [facility]
--- NOTE | 2017-03-31 11:45 | PHACANCOPD ---
PHARMACY VANCOMYCIN DOSING Pt Demographics Demographics Patient Age:56 , Weight:67.300 , Gender: male Adjusted Body Weight Events Past 24 Hours Events Past 24 Hours: YES: Change in CrCl, NO: Dialysis, Diuretic Therapy, Fever, Elevation in WBC, Pending Diagnostics , Pending Procedures, Other Vancomycin Vancomycin indication: SEPSIS, FUO, NEUTROPENIA Vancomycin Target Ranges: 15-20 mcg/ml Vancomycin Load Y/N: No Load Dose Date Time Vancomycin Load Dose: Date: Time: Vancomycin Dose Date: 03/31/17. Current Vancomycin Dose: [750mg IV q8h @17] Date: 03/28/17. Current Vancomycin Dose: [1GM GIVEN IN THE ER @ 15:30]. WE WILL INITIATE VANCO 1GM IV Q12H starting at 23:00 THIS EVENING. Intermittent Dosing?: No Labs Labs Item Value Date Time White Blood Count 1.7 K/mm3 L 03/29/17 0501 White Blood Count 4.4 K/mm3 03/30/17 0409 White Blood Count 9.8 K/mm3 03/31/17 0406 Creatinine 1.19 MG/DL 03/30/17 0409 Creatinine 0.96 MG/DL 03/31/17 0406 C-Reactive Protein, Quantitative 10.50 MG/DL H 03/31/17 0406 C-Reactive Protein, Quantitative 16.90 MG/DL H 03/29/17 0501 Creatinine 1.41 MG/DL H 03/29/17 0501 Vancomycin Level Trough 11.3 UG/ML 03/31/17 0959 Vancomycin Level Trough 7.8 UG/ML L 03/29/17 1101 Vital Signs Label Value Date Time Patient Temperature 101.7 degrees F 03/30/17 1600 Temperature Source Temporal 03/30/17 1600 Micro Microbiology 03/28/17 Blood Culture - Preliminary, Resulted No Growth after 48 hours. All Specime... 03/28/17 Blood Culture - Preliminary, Resulted No Growth after 48 hours. All Specime... 03/30/17 Respiratory Virus Panel (PCR) (DAMIR) - Final, Complete 03/28/17 Urine Culture - Final, Complete Creatinine Clearance Date:03/31/17. Creatinine Clearance: [90 ml/min]. Date:03/28/17. Creatinine Clearance: [35ML/MIN]. Assessment and Plan Maintaining Current Dose?: No Reason for dose change: Change in serum Cr, Trough too low Pharmacist Note Pharmacist Note Date: 03/31/17. Pharmacist note: vanco trough was drawn on time 1 hour before the dose and came back at 11.3. I have changed him to vanco 750mg IV q8h as his SCr has significantly improved since admission. Pt has been relatively afebrile , labs are improving. No positive cultures to date, pt continues on Zosyn and Vanco. We will continue to monitor. 03/29/17: Trough today resulted at 7.8mcg/ml, drawn prior to the 3rd dose. An additional 1g vanco dose will be given today @13, and then the patient will resume her maintenance regimen of 1g IV Q12H. The patient has been febrile in the past 24 hours, and pulse and CRP are elevated. Bands are now WNL. Blood cultures are still pending. A follow-up trough has been scheduled for 03/31/17 @ 1000. Date: 03/28/17. Pharm.D. note: 56YO MALE, 65.7KG in WEIGHT, 71" in HEIGHT ADMITTED WITH SEPSIS, FUO & NEUTROPENIA. ZOSYN 2.25GM IV Q6H INITIATED AT 18: 00. VANCO 1GM IV x1 GIVEN IN THE ER AT 15:30 THIS AFTERNOON. SCR 2.16 mcg/ml ( BASELINE UNKNOWN). DUE TO HIS PRESENTATION AND HIS AGE WE WILL CONTINUE WITH VANCO 1GM IV Q12H STARTING AT 23:00 TONIGHT. WE WILL OBTAIN A VANCO TROUGH PRIOR TO TOMORROW MORNINGS DOSE AND MONITOR ANY NOTED INCREASE/DECREASE IN HIS SCR. Abby BACON. Yasmany Greco Pharm.D. Mar 31, 2017 11:44
[2017-03-31 13:41] LABS: ANION GAP 8 MEQ/L (8-16); BLOOD UREA NITROGEN 10 MG/DL (7-18); CALCIUM LEVEL 7.1 MG/DL (8.5-10.1); CARBON DIOXIDE LEVEL 28 MEQ/L (21-32); CHLORIDE LEVEL 107 MEQ/L (98-107); CREATININE FOR GFR 0.85 MG/DL (0.70-1.30); GLOMERULAR FILTRATION RATE > 60.0 (>56); GLUCOSE, FASTING 117 MG/DL (70-105); POTASSIUM SERUM 3.2 MEQ/L (3.5-5.1); SODIUM LEVEL 143 MEQ/L (136-145)
[2017-03-31] MEDS: VANCOMYCIN HCL 750 MG, VIAL MATE ADAPTER 1 EACH in D5W 250 ML IV SCH (16:43)
[2017-03-31] MEDS ORDERED: OXAZEPAM 10 MG CAP PO SCH (21:00)
[2017-04-01] VITALS: BP 153/81
[2017-04-01] MEDS: VANCOMYCIN HCL 750 MG, VIAL MATE ADAPTER 1 EACH in D5W 250 ML IV SCH ×3 (00:53→17:46)
[2017-04-01 04:00] VITALS: BP 134/65
[2017-04-01 04:35] LABS: INR 0.93
[2017-04-01 04:38] LABS: DIFF SLIDE NUMBER 35; MEAN CORPUSCULAR HEMOGLOBIN 34.4 pg (27.0-33.0); MEAN CORPUSCULAR HGB CONC 35.1 g/dl (32.0-36.5); MEAN CORPUSCULAR VOLUME 98.1 fl (80.0-96.0); RED CELL DISTRIBUTION WIDTH 13.2 % (11.5-14.5); WHITE BLOOD COUNT 18.5 K/mm3 (4.0-10.0)
[2017-04-01 04:42] LABS: ALBUMIN 1.9 GM/DL (3.2-5.2); ALBUMIN/GLOBULIN RATIO 0.68 (1.00-1.93); ALKALINE PHOSPHATASE 42 U/L (45-117); ALT/SGPT 54 U/L (12-78); ANION GAP 5 MEQ/L (8-16); AST/SGOT 81 U/L (15-37); BILIRUBIN,TOTAL 0.8 MG/DL (0.2-1.0); BLOOD UREA NITROGEN 8 MG/DL (7-18); CALCIUM LEVEL 7.6 MG/DL (8.5-10.1); CARBON DIOXIDE LEVEL 27 MEQ/L (21-32); CHLORIDE LEVEL 109 MEQ/L (98-107); CREATININE FOR GFR 0.74 MG/DL (0.70-1.30); GLOMERULAR FILTRATION RATE > 60.0 (>56); GLUCOSE, FASTING 104 MG/DL (70-105); POTASSIUM SERUM 3.6 MEQ/L (3.5-5.1); SODIUM LEVEL 141 MEQ/L (136-145); TOTAL PROTEIN 4.7 GM/DL (6.4-8.2)
[2017-04-01 04:45] LABS: PLATELET COUNT, AUTOMATED 51 k/mm3 (150-450)
[2017-04-01 05:37] LABS: SMUDGE CELLS 2+
[2017-04-01] MEDS: PIPERACILLIN/TAZOBACTAM SOD 2.25 GM in D5W MINI-BAG PLUS 50 ML IV SCH ×3 (05:50→18:48)
[2017-04-01] MEDS: NS 1,000 ML IV SCH ×3 (05:50→16:54)
[2017-04-01 07:51] VITALS: BP 150/70
[2017-04-01] MEDS: THIAMINE HCL 200 MG/2 ML VIAL (J3411) IM SCH (09:00)
[2017-04-01] MEDS: FOLIC ACID 1 MG in NS 50 ML IV SCH (09:00)
[2017-04-01] MEDS: NICOTINE 14 MG/24 HR TRANSDERMAL TD SCH (10:16)
[2017-04-01 11:26] LABS: REASON FOR REVIEW COMPREHENSIVE REVIEW
--- NOTE | 2017-04-01 11:42 | IPN ---
DATE: 04/01/2017 Patient is seen and examined in the room today. Patient is alert and awake and patient became more oriented. He knows this is year 2017, in the past two days saying this is 1917 and today he realized that he was making a mistake yesterday and the day before. He known he is in [place] but he still cannot recall my name or the name of the hospital. Per nursing staff, patient still has increase feeling sleepiness. No seizure activity observed and no events detected on telemetry. OBJECTIVE: Vital signs: Temperature is 97.4, pulse 93, respirations 20, blood pressure 150/70, pulse 93% on room air. General: No sign of acute distress. Patient is alert and awake, not fully oriented but improving compared to yesterday. HEENT: No nuchal rigidity. No headaches. No neck of skull tenderness. Normocephalic, atraumatic. Extraocular motor grossly intact. Cardiovascular: Positive S1, S2. Regular rate. Lungs: Clear to auscultation bilaterally. Abdomen: Soft, nontender, nondistended. Bowel sounds present. No rebound. No guarding. Extremities: No edema. No sign of cyanosis. LABORATORY DATA: WBC 18.5, hemoglobin 13.7, hematocrit 39.1, platelet count is 51. Sodium is 141, potassium 3.6, chloride 109, carbon dioxide 27, BUN 8, creatinine 0.74, glomerular filtration rate is greater than 60. Fasting glucose 104, calcium 7.6, total bilirubin 0.8, AST 81, ALT 54. Alkaline phosphonate 42, C-reactive protein 6.16. Total protein 4.7. Albumin 1.9. ASSESSMENT AND PLAN: 1. Neutropenic fevers. Patient was empirically started on vancomycin and Zosyn. Blood culture is pending. Urine culture is negative. Respiratory panel negative. Chest x-ray negative. Brain scan is negative. Patient does not have any nuchal rigidities and negative Kernig sign. UA is negative. We do not have a source of patient's neutropenic fever. Initially it is suspected patient's severe neutropenia is due to chronic alcohol consumption causing bone marrow suppression. Since admission, patient continues to have spontaneous improvement of the WBC, however, today patient has significant increase of WBC. Initially peripheral smear was ordered on admission which did not show any morphological abnormalities. I had a chance to discuss with pathologist and today's lab studies show increased WBC, decreased neurophil. These warrants to repeat the peripheral smear and flow cytometry. Patient does not have a recurrent fever since 03/30/2017. 2. Encephalopathy, etiology unknown. At this moment, suspect chronic alcohol consumption. MRI/MRA is completely negative due to physical exam. Patient does not have any nuchal rigidities. Ammonia level has resolved within two days since admission. Patient's mentation is improving on a daily bases. Suspicion of thrombocytopenia secondary to bone marrow suppression for chronic alcohol use. Blood count is improving. No active sign of bleeding. 3. Acute kidney injury secondary to poor intake result in severe dehydration. The patient's acute kidney injury has resolved since 03/30/2017. Patient is currently on IV support. Will encourage patient to increase oral intake, however, patient still is not able to have significant oral intake. 4. Elevated troponin without chest pain. I did suspect demand ischemia. Troponin was improved shortly after admission. Patient does not complain of any type of chest pain. 5. Alcohol abuse. The patient was on scheduled Serax. Serax dose has been tapering down. No withdrawal symptoms have been observed. Today will switched the scheduled Serax to as needed. Continue to monitor for possible withdrawal. Patient is not sure about his last alcohol consumption. Patient has been hospitalized for the past 4-5 days. Patient continues on folic acid, thiamine, multivitamins. 7. History of marijuana use. 8. Deep venous thrombosis (DVT) prophylaxis. The patient has thrombocytopenia. The patient is on thromboembolism deterrent stockings (TEDS) and sequential compression devices. [facility]
[2017-04-01 12:00] VITALS: BP 163/85
[2017-04-01] MEDS: FOLIC ACID 1 MG TAB PO SCH (12:23)
[2017-04-01] MEDS: THIAMINE 100 MG TAB PO SCH (12:23)
[2017-04-01 16:00] VITALS: BP 150/85
--- NOTE | 2017-04-01 18:08 | PHACANCOPD ---
PHARMACY VANCOMYCIN DOSING Pt Demographics Demographics Patient Age:56 , Weight:66.300 , Gender: male Adjusted Body Weight Events Past 24 Hours Events Past 24 Hours: NO: Dialysis, Diuretic Therapy, Change in CrCl, Fever, Elevation in WBC, Pending Diagnostics, Pending Procedures, Other Vancomycin Vancomycin indication: SEPSIS, FUO, NEUTROPENIA Vancomycin Target Ranges: 15-20 mcg/ml Vancomycin Load Y/N: No Load Dose Date Time Vancomycin Load Dose: Date: Time: Vancomycin Dose Date: 04/01/17. Continue current Vancomycin Dose: [750mg IV q8h @17] Intermittent Dosing?: No Labs Micro Microbiology 03/28/17 Blood Culture - Preliminary, Resulted No Growth after 72 hours. All specime... 03/28/17 Blood Culture - Preliminary, Resulted No Growth after 72 hours. All specime... Creatinine Clearance Date:03/31/17. Creatinine Clearance: [90 ml/min]. Date:03/28/17. Creatinine Clearance: [35ML/MIN]. Assessment and Plan Maintaining Current Dose?: Yes Reason for dose change: No Dose Change Pharmacist Note Pharmacist Note Date: 04/01/17. Pharm.D. note: 56YO MALE 66.3KG in WEIGHT ON VANCO 750MG IV Q8H. VANCO TROUGH THIS EVENING = 14.3 Mcg/ml (GOAL 15-20 MCG/ML). WE WILL CONTINUE WITH CURRENT TX ORDERED HE IS NEAR ENOUGH TO HIS GOAL. WE WILL REPEAT A VANCO TROUGH TOMORROW EVENING GIVEN HIS RENAL FUNCTION HAS GREATLY IMPROVED (SCr 0.74 mcg/ml 04/01/17). JORDI, Pharm.D. [facility] Apr 01, 2017 18:08
[2017-04-01 20:00] VITALS: BP 169/88
[2017-04-02] VITALS: BP 155/74
[2017-04-02] MEDS: PIPERACILLIN/TAZOBACTAM SOD 2.25 GM in D5W MINI-BAG PLUS 50 ML IV SCH ×3 (00:16→11:59)
[2017-04-02] MEDS: VANCOMYCIN HCL 750 MG, VIAL MATE ADAPTER 1 EACH in D5W 250 ML IV SCH ×2 (00:54→08:46)
[2017-04-02 04:00] VITALS: BP 166/91
[2017-04-02 05:12] LABS: BASO # 0.3 K/mm3 (0.0-0.2); BASO % 1.2 % (0.0-1.0); EOS # 0.2 K/mm3 (0.0-0.50); EOS % 0.9 % (0.0-3.0); LARGE UNSTAINED CELL # 1.4 K/mm3 (0.0-0.4); LARGE UNSTAINED CELL % 6.6 % (0.0-4.0); LYMPH # 15.1 K/mm3 (1.5-4.5); LYMPH % 65.2 % (24.0-44.0); MEAN CORPUSCULAR HEMOGLOBIN 35.6 pg (27.0-33.0); MEAN CORPUSCULAR HGB CONC 36.3 g/dl (32.0-36.5); MEAN CORPUSCULAR VOLUME 98.1 fl (80.0-96.0); MONO # 0.9 K/mm3 (0.0-0.8); MONO % 4.1 % (0.0-5.0); NEUTROPHILS # 4.6 K/mm3 (1.8-7.7); RED CELL DISTRIBUTION WIDTH 13.6 % (11.5-14.5)
[2017-04-02 05:14] LABS: PLATELET COUNT, AUTOMATED 95 k/mm3 (150-450)
[2017-04-02 05:16] LABS: INR 0.95
[2017-04-02 05:43] LABS: ALBUMIN 1.9 GM/DL (3.2-5.2); ALBUMIN/GLOBULIN RATIO 0.66 (1.00-1.93); ALKALINE PHOSPHATASE 46 U/L (45-117); ALT/SGPT 55 U/L (12-78); ANION GAP 7 MEQ/L (8-16); AST/SGOT 71 U/L (15-37); BILIRUBIN,TOTAL 0.7 MG/DL (0.2-1.0); BLOOD UREA NITROGEN 8 MG/DL (7-18); CALCIUM LEVEL 7.6 MG/DL (8.5-10.1); CARBON DIOXIDE LEVEL 31 MEQ/L (21-32); CHLORIDE LEVEL 106 MEQ/L (98-107); CREATININE FOR GFR 0.86 MG/DL (0.70-1.30); GLOMERULAR FILTRATION RATE > 60.0 (>56); GLUCOSE, FASTING 93 MG/DL (70-105); POTASSIUM SERUM 3.2 MEQ/L (3.5-5.1); SODIUM LEVEL 144 MEQ/L (136-145); TOTAL PROTEIN 4.8 GM/DL (6.4-8.2)
[2017-04-02] MEDS: NS 1,000 ML IV SCH (06:04)
[2017-04-02] MEDS ORDERED: POTASSIUM CHLORIDE 10 MEQ SR TABLET PO ONE (06:45)
[2017-04-02 07:33] VITALS: BP 175/88
[2017-04-02] MEDS: THIAMINE 100 MG TAB PO SCH (08:46)
[2017-04-02] MEDS: FOLIC ACID 1 MG TAB PO SCH (08:46)
[2017-04-02] MEDS: NICOTINE 14 MG/24 HR TRANSDERMAL TD SCH (08:46)
[2017-04-02 08:59] LABS: MAGNESIUM LEVEL 1.8 MG/DL (1.8-2.4)
[2017-04-02 12:23] VITALS: BP 158/66
[2017-04-02] MEDS ORDERED: MAG SULF 1GM/100ML (MAG RUN) 1 GM in APPROPRIATE DILUENT 1 EA IV ONE (12:45)
[2017-04-02 14:40] VITALS: BP 148/62
--- NOTE | 2017-04-02 17:20 | IPN ---
DATE: 04/02/2017 Patient seen and examined at the bedside. Chart has been reviewed. This morning, patient has no new complaints. No fevers or chills. No weakness, chest pain, pressure, or tightness, shortness of breath, palpitations, lightheadedness. Patient states, "I feel good today." He denies any nausea, vomiting, abdominal pain. Denies any sensory disturbance on the skin. Denies any tremors. VITAL SIGNS: Temperature 97.6, pulse 78, respiratory rate 18, blood pressure 158/66, 95% on room air. Generally, patient is awake, alert, oriented times three, answering questions appropriately. Anicteric sclerae. No jaundice. No jugular venous distention. Pupils round and reactive. Extraocular muscles are intact. Heart: S1, S2, sinus rhythm. Abdomen is soft, nontender, nondistended. Positive bowel sounds. Lungs are clear to auscultation. No wheezes, rales, or rhonchi. Extremities : No cyanosis, clubbing, or pitting edema. Skin: Patient has scabs noted on the right eyebrow as well as in the philtrum area underneath the nose. Otherwise, no lopez signs. No other cyanotic or ecchymotic areas on the face. LABORATORY DATA: White count 21,000, hemoglobin 13, hematocrit 36, platelet count 95. Sodium 144, potassium 3.2, chloride 106, bicarbonate 31, BUN 8, creatinine 0.86, glucose 93, magnesium 1.8, ionized calcium 4.5, albumin of 1.9. Microbiology: Respiratory panel negative. Urine culture negative. Two sets of blood cultures negative after [address] chest, abdomen, and pelvis shows no active disease. Mild emphysema, upper lung zones, and bilaterally. CT abdomen and pelvis: No acute intra-abdominal abnormality. Heavy vascular calcifications. Burger catheter in the bladder. MRI of the brain shows small-vessel ischemic disease, minimal volume loss. MRA of the brain: No aneurysm or arteriovenous malformation (AVM) or atherosclerotic disease. ASSESSMENT AND PLAN: This is a 56-year-old male with a history of heavy alcohol abuse who presented to the emergency room with altered mental status. Complains of generalized weakness and imbalance for the past four months with multiple falls at home. Patient usually drinks 24-ounce beers daily for the past 20 years. Last drink was 03/27/2017. Smokes two to three packs of cigarettes daily. He was found to be neutropenic, temperature 100.7, thrombocytopenic with slight ST depressions in the lateral leads, elevated troponin. Admitted to rule out acute coronary syndrome, neutropenic fever, and thrombocytopenia. Patient's leukopenia and thrombocytopenia was initially thought to be secondary to alcoholic liver disease secondary to heavy alcohol abuse; however, peripheral smear is concerning for atypical lymphoid cells and smudge cells with absolute lymphocytosis. Flow cytometry has been sent to rule out chronic lymphocytic leukemia, which with alcohol abuse most likely dampening the leukocytosis, causing leukopenia and thrombocytosis. Patient is currently on IV antibiotics. Has been afebrile with no white count since admission. Has been afebrile for the past three days with white count increased to 21,000. CURRENT ISSUES: 1. Persistent leukocytosis, initially neutropenic, started on intravenous (IV) antibiotics, broad spectrum, due to concerns of severe chronic immunosuppression, on vancomycin and Zosyn for broad-spectrum coverage. No signs of infection in the blood. CT chest, abdomen, and pelvis was negative. Respiratory panel is negative. White count continues to increase with complaints of two to three bowel movements over the past four days. Gastrointestinal (GI) panel has been sent, resulting of which is still pending. Medical oncology has been consulted, and still awaiting the flow cytometry results prior to officially seeing the patient in consult at this time, since cultures have been negative, imaging studies are unremarkable. Patient has been having diarrhea. Remains afebrile. Will discontinue the antibiotics, as he is at increased risk of Clostridium (C) difficile. 2. Hypertension. Monitor for alcohol withdrawal, on as-needed Serax. Monitor for symptoms. Currently denies any chest pain, pressure, or tightness. 3. Abnormal EKG. Echocardiogram shows left ventricular ejection fraction of 60% with preserved systolic function. Currently denies any chest pain, pressure, or tightness. Toxicology screening was positive for marijuana but negative for cocaine. Cardiac markers showed mild rhabdomyolysis. 4. Electrolytes abnormalities. Supplemented. Repeat potassium and magnesium. Supplement if needed. 5. Acute kidney injury with mild rhabdomyolysis, resolved, on IV fluids. 6. Encephalopathy, most likely secondary to chronic alcohol consumption. MRI and MRA negative. 7. History of alcohol abuse, rule out withdrawal. On Serax. 8. Demand-mediated ischemia. Positive troponin. Currently no chest pain. Monitor for recurrent symptoms. PLAN: Patient is medically stable to be transferred to progressive care unit (PCU).
[2017-04-02 20:00] VITALS: BP 158/85
[2017-04-02 20:58] LABS: MAGNESIUM LEVEL 2.1 MG/DL (1.8-2.4); POTASSIUM SERUM 3.3 MEQ/L (3.5-5.1)
[2017-04-03] VITALS (9 sets, daily range): BP systolic 142–189; BP diastolic 75–89
[2017-04-03 05:37] LABS: BASO # 0.1 K/mm3 (0.0-0.2); BASO % 0.7 % (0.0-1.0); EOS # 0.2 K/mm3 (0.0-0.50); EOS % 1.3 % (0.0-3.0); LARGE UNSTAINED CELL # 0.9 K/mm3 (0.0-0.4); LARGE UNSTAINED CELL % 6.4 % (0.0-4.0); LYMPH # 9.2 K/mm3 (1.5-4.5); LYMPH % 57.8 % (24.0-44.0); MEAN CORPUSCULAR HEMOGLOBIN 35.2 pg (27.0-33.0); MEAN CORPUSCULAR HGB CONC 35.3 g/dl (32.0-36.5); MEAN CORPUSCULAR VOLUME 99.7 fl (80.0-96.0); MONO # 0.9 K/mm3 (0.0-0.8); MONO % 6.4 % (0.0-5.0); NEUTROPHILS # 3.9 K/mm3 (1.8-7.7); NEUTROPHILS % 27.5 % (36.0-66.0); PLATELET COUNT, AUTOMATED 143 k/mm3 (150-450); RED CELL DISTRIBUTION WIDTH 13.6 % (11.5-14.5)
[2017-04-03 05:52] LABS: WHITE BLOOD COUNT 14.3 K/mm3 (4.0-10.0)
[2017-04-03 06:03] LABS: ALBUMIN/GLOBULIN RATIO 0.65 (1.00-1.93); ALKALINE PHOSPHATASE 49 U/L (45-117); ALT/SGPT 54 U/L (12-78); ANION GAP 6 MEQ/L (8-16); AST/SGOT 53 U/L (15-37); BILIRUBIN,TOTAL 0.6 MG/DL (0.2-1.0); BLOOD UREA NITROGEN 10 MG/DL (7-18); CALCIUM LEVEL 7.7 MG/DL (8.5-10.1); CARBON DIOXIDE LEVEL 30 MEQ/L (21-32); CHLORIDE LEVEL 105 MEQ/L (98-107); GLOMERULAR FILTRATION RATE > 60.0 (>56); GLUCOSE, FASTING 91 MG/DL (70-105); POTASSIUM SERUM 3.3 MEQ/L (3.5-5.1); SODIUM LEVEL 141 MEQ/L (136-145); TOTAL PROTEIN 5.1 GM/DL (6.4-8.2)
[2017-04-03] MEDS ORDERED: POTASSIUM CHLORIDE 10 MEQ SR TABLET PO ONE (07:15)
[2017-04-03] MEDS: FOLIC ACID 1 MG TAB PO SCH (09:06)
[2017-04-03] MEDS: THIAMINE 100 MG TAB PO SCH (09:06)
[2017-04-03] MEDS: NICOTINE 14 MG/24 HR TRANSDERMAL TD SCH (09:07)
[2017-04-04 06:00] VITALS: BP 165/89
[2017-04-04 07:24] LABS: BASO # 0.1 K/mm3 (0.0-0.2); BASO % 0.8 % (0.0-1.0); EOS # 0.1 K/mm3 (0.0-0.50); EOS % 1.1 % (0.0-3.0); LARGE UNSTAINED CELL # 0.7 K/mm3 (0.0-0.4); LARGE UNSTAINED CELL % 5.8 % (0.0-4.0); LYMPH # 5.3 K/mm3 (1.5-4.5); LYMPH % 48.1 % (24.0-44.0); MEAN CORPUSCULAR HEMOGLOBIN 34.7 pg (27.0-33.0); MEAN CORPUSCULAR HGB CONC 34.9 g/dl (32.0-36.5); MEAN CORPUSCULAR VOLUME 99.5 fl (80.0-96.0); MONO % 8.8 % (0.0-5.0); NEUTROPHILS # 3.9 K/mm3 (1.8-7.7); NEUTROPHILS % 35.4 % (36.0-66.0); PLATELET COUNT, AUTOMATED 222 k/mm3 (150-450); RED CELL DISTRIBUTION WIDTH 13.1 % (11.5-14.5)
[2017-04-04 07:25] LABS: WHITE BLOOD COUNT 11.1 K/mm3 (4.0-10.0)
[2017-04-04 07:29] LABS: INR 0.96
[2017-04-04 07:48] LABS: ALKALINE PHOSPHATASE 55 U/L (45-117); ALT/SGPT 50 U/L (12-78); ANION GAP 5 MEQ/L (8-16); AST/SGOT 44 U/L (15-37); BILIRUBIN,TOTAL 0.7 MG/DL (0.2-1.0); BLOOD UREA NITROGEN 9 MG/DL (7-18); CALCIUM LEVEL 8.2 MG/DL (8.5-10.1); CARBON DIOXIDE LEVEL 31 MEQ/L (21-32); CHLORIDE LEVEL 107 MEQ/L (98-107); CREATININE FOR GFR 0.74 MG/DL (0.70-1.30); GLOMERULAR FILTRATION RATE > 60.0 (>56); GLUCOSE, FASTING 81 MG/DL (70-105); POTASSIUM SERUM 3.8 MEQ/L (3.5-5.1); SODIUM LEVEL 143 MEQ/L (136-145)
[2017-04-04 07:49] LABS: ALBUMIN 2.2 GM/DL (3.2-5.2); ALBUMIN/GLOBULIN RATIO 0.61 (1.00-1.93); TOTAL PROTEIN 5.8 GM/DL (6.4-8.2)
[2017-04-04] MEDS: NICOTINE 14 MG/24 HR TRANSDERMAL TD SCH (08:22)
[2017-04-04] MEDS: FOLIC ACID 1 MG TAB PO SCH (08:22)
[2017-04-04] MEDS: THIAMINE 100 MG TAB PO SCH (08:22)
[2017-04-04] MEDS: OXAZEPAM 10 MG CAP PO PRN (08:27)
[2017-04-04] MEDS ORDERED: FOLI1TAB2 PO (08:53)
[2017-04-04] MEDS ORDERED: NICO14PA TD (08:53)
[2017-04-04] MEDS ORDERED: THIA100TA PO (08:53)
--- NOTE | 2017-04-04 12:47 | IPN ---
DATE: 04/03/2017 The patient is seen and examined at the bedside. Chart has been reviewed. This morning, the patient has no new complaints. No fever. No chills, cough, dysuria, urgency, frequency, nausea, vomiting, abdominal pain. Ambulating well. No difficulty. No headaches or changes in vision. PHYSICAL EXAMINATION: VITAL SIGNS: Temperature 98.4, pulse 89, respiratory rate 18, blood pressure 152/84, 98% on room air. GENERAL: Awake, alert and oriented times three. Answering questions appropriately. LUNGS: Clear to auscultation. No wheezes, rales, or rhonchi. HEART: S1, S2. Sinus rhythm. ABDOMEN: Soft, nontender, nondistended. Positive bowel sounds. EXTREMITIES: No cyanosis, clubbing or pitting edema. LABORATORY DATA: White count 14.3, hemoglobin 13, hematocrit 37, platelet count 143. Sodium 141, potassium 3.3, chloride 105, bicarbonate 30, BUN 10, creatinine 0.7, glucose 91. Microbiology: Respiratory panel, urine and blood cultures are all negative. ASSESSMENT AND PLAN: This is a 56-year-old male with a history of heavy alcohol abuse, presented to the emergency room with altered mental status, complained of generalized weakness and imbalance for the past four months with multiple falls at home. The patient usually drinks 24 beers daily for the past 20 years, last drink was 03/27/2017. Smokes two to three packs of cigarettes daily and was found to have neutropenia with temperature of 100.7, thrombocytopenic, slight ST depression in lateral leads and elevated troponin, admitted to rule out acute coronary syndrome and treat for neutropenic fever and evaluation of thrombocytopenia. The patient's leukopenia and thrombocytopenia were initially thought to be secondary to alcoholic liver disease secondary to heavy alcohol abuse; however, peripheral smear is concerning for atypical lymphoid cells without lymphocytosis. Flow cytometry has been sent to rule out chronic lymphocytic leukemia, which with alcohol abuse most likely leukocytosis causing leukopenia thrombocytopenia. He is currently on IV antibiotics. He has been afebrile with no white count since admission. 1. Persistent leukocytosis initially neutropenic, started on IV antibiotics, broad spectrum. Concerns of severe chronic immunosuppression. On vancomycin and Zosyn for broad spectrum coverage. No signs of infection in the blood. CT of the chest, abdomen and pelvis have been negative. Respiratory panel is negative. White count continues to decrease. GI panel has been sent. Medical oncology has been consulted, still waiting the flow cytometry results prior to officially seeing the patient in consult at this time. Since cultures have been negative, imaging studies have been unremarkable, and the patient has been having diarrhea, we will discontinue the patient's antibiotics. Currently is at increased risk of Clostridium (C.) difficile. 2. Hypertension. Monitor for alcohol withdrawal. On as needed Serax. Monitor for symptoms. Currently denies any chest pain, pressure or tightness. Abnormal EKG. Echo shows left ventricular ejection fraction of 60% with preserved systolic function. Currently denies any chest pain, pressure or tightness. Toxicology is positive for marijuana but negative for cocaine. Cardiac markers showed mild rhabdomyolysis. 3. Electrolyte abnormalities, supplemented and replaced potassium and magnesium. 4. Acute kidney injury with acute mild rhabdomyolysis secondary to fall, resolved on IV fluids. 5. Encephalopathy secondary to chronic alcohol consumption, resolved. MRI and MRA of the brain are negative. 6. History of alcohol abuse. Withdrawal on as needed Serax. 7. Demand mediated ischemia. Positive troponin. Currently no chest pain. Monitor for recurrent symptoms. The patient is medically stable to be transferred to medical/surgical floor.
--- NOTE | 2017-04-04 21:00 | CR ---
DATE OF CONSULTATION: 04/03/2017 CONSULTATION REPORT FOR: Dr. Linda Fabian REASON FOR CONSULTATION: Lymphocytosis/leukocytosis. HISTORY OF PRESENT ILLNESS: Mr. Ling is a 56-year-old man who is currently admitted to [facility] ([facility]) for altered mental status. On questioning, he does not give a very good history but he said that he was brought here by his friend after being sick for a few days. In the emergency room, he was noted to have neutropenia and thrombocytopenia and febrile. He was admitted and started on antibiotics for a possible sepsis. Since that time, his clinical status has improved. He had blood cultures which came back negative. He had urine culture which came back with no growth. He also had a respiratory virus panel which came back negative. Initially, his white blood cell (WBC) count was noted to be low at 1.4 and this subsequently improved and he was noted to have leukocytosis on day four of hospitalization. On day five of hospitalization, his WBC count continued to go up to 21 with absolute lymphocytosis. Today, WBC count has decreased from yesterday's to 14.3 mm3/uL. with a decrease in his lymphocyte count to 9.2 mm3/uL. On admission, he was noted to be thrombocytopenic with platelet count of 25 times m to the mm3/uL with subsequent improvement in his platelet counts to today's platelet count of 143 mm3/uL. On questioning, Mr. Ling says that he has been feeling much better since he got admitted and he has expressed the desire to be discharged tomorrow. CURRENT MEDICATIONS: Potassium chloride, thiamine, nicotine patch, lorazepam, acetaminophen, ondansetron, oxazepam. ALLERGIES: No known drug allergies. PHYSICAL EXAMINATION: On physical examination, he was afebrile. Pulse rate 80 per minute. Temperature 98.5. Oxygen saturation 96% on room air. He had pinkish conjunctiva, anicteric sclerae. No oral mucosal lesions. No palpable cervical nodes. Lungs were clear. No rales or rhonchi. No wheezes. S1, S2, regular. Abdomen was soft, nontender. No guarding. No hepatosplenomegaly. Extremities: No calf swelling, calf tenderness, and no pedal edema. He had abrasions on his face on his lower extremities which were healing. IMPRESSION AND PLAN: Mr. Ling is a 56-year-old man who initially presented with leukopenia and thrombocytopenia and now presents with leukocytosis with elevated lymphocyte count and an improvement in his platelet count to almost normal levels. His leukopenia and thrombocytopenia in the beginning could be attributed to alcohol toxicity. With improvement, he has had lymphocytosis. Flow cytometry results are pending at this time. We await flow cytometry results. His lymphocytosis could be a reactive lymphocytosis or could signify a hematological malignancy. I have offered a followup appointment at [facility] to Mr. Ling but he declined this. I have given him a card and advised him to call us should he change his mind about a followup appointment with me. Thank you for this referral. cc: MD DIAZ Stubbs
--- NOTE | 2017-04-05 10:52 | DSES ---
DATE OF ADMISSION: 03/28/2017 DATE OF DISCHARGE: 04/04/2017, the patient left against medical advice. PRIMARY CARE PHYSICIAN: None. CONSULTANTS: Dr. Nazia Ramos hematology/oncology. PRIMARY DISCHARGE DIAGNOSES: 1. Atypical lymphocytes, cannot rule out chronic lymphocytic leukemia. 2. Neutropenic fever. 3. Hypertension. 4. Abnormal electrocardiogram (EKG). 5. Toxicology screen positive for marijuana. 6. Electrolyte abnormality with low potassium and magnesium. 7. Acute kidney injury with mild rhabdomyolysis. 8. Encephalopathy secondary to chronic alcohol use, history of alcohol abuse. 9. Demand mediated ischemia. FOLLOWUP ISSUES: The patient has left against medical advice and we are still awaiting the flow cytometry results to rule out chronic lymphocytic leukemia. HOSPITAL COURSE: This is a 56-year-old male with history of chronic alcohol abuse who presented to the emergency room with complaints of weakness and imbalance for the last four months with multiple falls at home. The patient usually drinks 24 ounces of beer daily for the past 20 years. Last drink was 03/27/2017. Smokes 2-3 packs of cigarettes daily. He was found to be severely neutropenic with a temperature of 100.7 on admission and thrombocytopenic. He was admitted for neutropenic fever and was started on broad-spectrum antibiotics with vancomycin and Zosyn. Urine, blood, CT chest, abdomen and pelvis were all negative. Blood cultures were negative. The patient's antibiotics were discontinued. He then continued to have increasing white count with leukocytosis, evaluated with peripheral blood smear which revealed atypical lymphocytosis with atypical lymphoid cells and smudge cells concerning for possible chronic lymphocytic leukemia with dampening of the leukocytosis due to alcohol causing leukopenia and thrombocytopenia. The patient remained afebrile since antibiotics were started. White count peaked at 21,000. Dr. Nazia Ramos was consulted who recommended waiting for the flow cytometry, which was not available on discharge. The patient left against medical advice. Per Dr. Hayden, this result would not be available until potentially Saturday morning. At this time, the patient was advised of the risks and benefit of staying in the hospital. Risk would be undiagnosed chronic lymphocytic leukemia which may transform into an acute leukemic process requiring treatment. The patient was made aware of the possible consequences and decided to leave against medical advice as he has some social issues to deal with at home. LABORATORIES ON DISCHARGE: White count 11.1, hemoglobin 13, hematocrit 38, platelet count of 222. Sodium 143, potassium 3.8, chloride 107, bicarbonate 31, BUN 9, creatinine 0.74, glucose of 81. MICROBIOLOGY: Respiratory panel negative. Urine culture negative. Two sets of blood cultures no growth after five days. IMAGING: CT of the chest, abdomen and pelvis: No acute pathology. Mild emphysema in the upper lung zones. CT abdomen and pelvis showed no acute intra-abdominal pathology. MRI of the brain shows small vessel ischemic disease. DISCHARGE MEDICATIONS: - folic acid 1 mg daily - nicotine patch 14 mg daily - thiamine 100 mg daily FOLLOWUP ISSUES: The patient has atypical lymphoid cells with smudge cells on peripheral blood smear. Flow cytometry is still pending on the day that the patient left against medical advice. He was given an appointment to see Dr. Ramos to discuss results if he is interested, and indicated that he would like to know the results, but has to leave the hospital today despite consequences of untreated leukemia.
== END 2017-04-04 11:40 | disposition left against medical advice (07) | DRG 663 ==
LOC: M ED 14:34 → M ED INP 17:27 → M ICU 19:57 → M PCU 04-02 12:12 → M MS4PR 04-03 10:14 → M MS5PR 04-03 17:50
PROVIDERS: ADMIT Internal Medicine; ATTEND General Practice
DX: D72.9 Disorder of white blood cells, unspecified (principal); N17.9 Acute kidney failure, unspecified; I24.8 Other forms of acute ischemic heart disease; M62.82 Rhabdomyolysis; E87.8 Other disorders of electrolyte and fluid balance, not elsewhere classified; D69.6 Thrombocytopenia, unspecified; G31.2 Degeneration of nervous system due to alcohol; I10 Essential (primary) hypertension; R94.31 Abnormal electrocardiogram [ECG] [EKG]; F12.10 Cannabis abuse, uncomplicated; F10.10 Alcohol abuse, uncomplicated; R29.6 Repeated falls; F17.210 Nicotine dependence, cigarettes, uncomplicated; Z79.899 Other long term (current) drug therapy; R79.89 Other specified abnormal findings of blood chemistry

== ENCOUNTER 2017-05-16 13:09 | Emergency (ER) | payer MEDICAID ==
[~2017-05-16] VITALS: Ht 180.3 cm; Wt 72.2 kg
[~2017-05-16 13:09] MED LIST: FOLI1TAB4 PO; NICO14PA TD; THIA100TA PO
[2017-05-16] MEDS ORDERED: FLUORESCEIN OPHTH 1 MG STRIP OD ONE (14:00)
[2017-05-16] MEDS ORDERED: TETRACAINE 0.5% OPHTH SOLN 4ML OD ONE (14:00)
[2017-05-16] MEDS ORDERED: FLUORESCEIN OPHTH 1 MG STRIP OS ONE (14:15)
[2017-05-16] MEDS ORDERED: ERYTOIN8 OD (14:58)
[2017-05-16] MEDS ORDERED: CYCL1SOL17 OD (15:00)
[2017-05-16 15:21] VITALS: BP 180/90
[2017-05-16] MEDS ORDERED: AMLO10TA PO (15:31)
== END 2017-05-16 15:37 | disposition home or self-care (01) ==
LOC: M ED 13:09
DX: S05.01XA Injury of conjunctiva and corneal abrasion without foreign body, right eye, initial encounter (principal); F10.20 Alcohol dependence, uncomplicated; I10 Essential (primary) hypertension; X58.XXXA Exposure to other specified factors, initial encounter; Y92.9 Unspecified place or not applicable; Y93.9 Activity, unspecified; Y99.9 Unspecified external cause status; F17.200 Nicotine dependence, unspecified, uncomplicated; F12.10 Cannabis abuse, uncomplicated; Z79.899 Other long term (current) drug therapy

== ENCOUNTER → 2017-06-07 | Outpatient (REF) | payer OTHER ==
[~2017-06-07] MED LIST changes: +AMLO10TA PO; +CYCL1SOL17 OD; +ERYTOIN8 OD
[2017-06-07 14:40] LABS: INR 0.86
[2017-06-07 15:56] LABS: HEPATITIS B SURFACE ANTIBODY NEGATIVE (POSITIVE)
== END ==
LOC: M LAB REF 14:18
PROVIDERS: ATTEND Internal Medicine Medical Oncology
DX: C85.90 Non-Hodgkin lymphoma, unspecified, unspecified site (principal)

== ENCOUNTER → 2017-06-21 | Outpatient (CLI) | payer OTHER ==
[~2017-06-21] MED LIST changes: +GASTROGRAFIN SOLUTION 30ML (Q9963) As Ordered ONE; +ISOVUE-370 76% 100ML VIAL (Q9967) As Ordered ONE
--- NOTE | 2017-06-21 17:01 | REP ---
Clinical: T-cell lymphoma for restaging. Technique: Axial contrast enhanced images from the l thoracic inlet to the upper abdomen using 100 ml Isovue 370 intravenous contrast material with coronal and sagittal re-formations. Comparison: 03/28/2017. Findings: Lung rowland demonstrate moderate COPD and emphysematous changes without consolidation, nodule or mass lesion. No pleural effusion/reaction or pneumothorax. Tracheobronchial tree is patent. No axillary, hilar, or mediastinal adenopathy. Mediastinum demonstrates normal thoracic aorta and heart/pericardium. No pericardial effusion. Musculoskeletal structures without focal osseous abnormality. Limited evaluation of the upper abdomen demonstrates normal bilateral adrenal glands along with 1.2 cm right renal cyst. Impression: Moderate COPD and emphysematous changes. No acute mediastinal or pleuroparenchymal process. No adenopathy, effusion, or consolidation. Signed by Oscar Carr MD 06/21/2017 04:53 P
--- NOTE | 2017-06-21 17:06 | REP ---
Clinical: T-cell lymphoma for restaging. Technique: Axial contrast enhanced images from the lung bases to the pubic symphysis using oral oral and 100 ml Isovue 370 intravenous contrast material with precontrast and delayed images of the abdomen as well as coronal and sagittal re-formations. Comparison: 03/28/2017. Findings: Lung bases are clear. Visualized heart and pericardium normal. Liver, spleen, pancreas, gallbladder, bilateral adrenal glands and left kidney are normal. Stable 1.2 cm right renal cyst. The enteric system is without obstruction or acute inflammatory process and a normal terminal ileum and appendix are identified in the right lower quadrant. Pelvis demonstrates normal bladder and age appropriate prostate/seminal vesicles. No free air, free fluid, or mass lesion appreciated. No intraperitoneal or retroperitoneal adenopathy. Atherosclerotic changes of the aorta and vasculature noted without aneurysm. Musculoskeletal structures demonstrate degenerative changes without focal osseous abnormality. Impression: 1. No acute abdominopelvic pathology appreciated. Specifically, no ascites, adenopathy, or mass lesion. 2. Stable 1.2 cm right renal cyst. 3. Extensive atherosclerotic changes to the vasculature. Signed by Oscar Carr MD 06/21/2017 04:57 P
--- NOTE | 2017-06-25 12:46 | REP ---
CT NECK WITH CONTRAST: HISTORY: Leukemia restaging. CONTRAST: Isovue-370, 100 mL. The naso-, pedro-, and hypopharynx, larynx, and subglottic trachea are normal in appearance. The salivary and thyroid glands are normal in size and density. Small lymph nodes less than __1 cm___ in size are present in the internal jugular chains, posterior triangles, submandibular, and submental areas. Atherosclerotic calcification is present at the carotid bifurcations. Degenerative change is present in the cervical spine. The lung apices are clear. Mucosal thickening is present in the left maxillary sinus and mastoid air cells. IMPRESSION: There is no neck mass or adenopathy. Signed by Garland Bond MD 06/25/2017 01:09 P
== END ==
LOC: M RAD 14:58
PROVIDERS: ATTEND Internal Medicine Medical Oncology
DX: J44.9 Chronic obstructive pulmonary disease, unspecified (principal); N28.1 Cyst of kidney, acquired; C91.50 Adult T-cell lymphoma/leukemia (HTLV-1-associated) not having achieved remission
CPT/HCPCS: 70491; 71260; 74178; Q9963; Q9967

== ENCOUNTER → 2017-06-28 | Outpatient (REF) | payer OTHER ==
[~2017-06-28] MED LIST changes: -GASTROGRAFIN SOLUTION 30ML (Q9963) As Ordered ONE; -ISOVUE-370 76% 100ML VIAL (Q9967) As Ordered ONE
[2017-06-28 17:46] LABS: VITAMIN B12 LEVEL 303 PG/ML (247-911)
[2017-06-28 17:47] LABS: ALBUMIN 3.8 GM/DL (3.2-5.2); ALBUMIN/GLOBULIN RATIO 0.88 (1.00-1.93); ALKALINE PHOSPHATASE 83 U/L (45-117); ALT/SGPT 21 U/L (12-78); ANION GAP 4 MEQ/L (8-16); AST/SGOT 15 U/L (15-37); BILIRUBIN,TOTAL 0.3 MG/DL (0.2-1.0); BLOOD UREA NITROGEN 14 MG/DL (7-18); CARBON DIOXIDE LEVEL 33 MEQ/L (21-32); CHLORIDE LEVEL 102 MEQ/L (98-107); CREATININE FOR GFR 0.93 MG/DL (0.70-1.30); FREE T4 0.76 NG/DL (0.76-1.46); GLOMERULAR FILTRATION RATE > 60.0 (>56); GLUCOSE, FASTING 83 MG/DL (70-105); POTASSIUM SERUM 4.5 MEQ/L (3.5-5.1); SODIUM LEVEL 139 MEQ/L (136-145); TOTAL PROTEIN 8.1 GM/DL (6.4-8.2)
== END ==
LOC: M SFHCPLAZ 14:35
PROVIDERS: ATTEND Nurse Practitioner Family
DX: I10 Essential (primary) hypertension (principal); F32.9 Major depressive disorder, single episode, unspecified; F10.10 Alcohol abuse, uncomplicated

== ENCOUNTER → 2018-11-05 | Outpatient (REF) | payer OTHER ==
[~2018-11-05] MED LIST changes: +FOLI1TAB11 PO; -FOLI1TAB4 PO
[2018-11-05 13:42] LABS: BASO % 0.2 % (0.0-1.0); EOS # 0.7 10^3/uL (0.0-0.50); EOS % 7.4 % (0.0-3.0); HEMATOCRIT 44.3 % (42.0-52.0); LYMPH # 2.7 10^3/uL (1.5-4.5); LYMPH % 28.2 % (24.0-44.0); MEAN CORPUSCULAR HEMOGLOBIN 32.6 pg (27.0-33.0); MEAN CORPUSCULAR HGB CONC 33.9 g/dl (32.0-36.5); MEAN CORPUSCULAR VOLUME 96.3 fl (80.0-96.0); MONO # 0.9 10^3/uL (0.0-0.8); MONO % 9.1 % (0.0-5.0); NEUTROPHILS # 5.2 10^3/uL (1.8-7.7); NEUTROPHILS % 54.8 % (36.0-66.0); PLATELET COUNT, AUTOMATED 303 10^3/uL (150-450); WHITE BLOOD COUNT 9.5 10^3/uL (4.0-10.0)
[2018-11-05 14:07] LABS: ALBUMIN 4.1 GM/DL (3.2-5.2); ALT/SGPT 68 U/L (12-78); BILIRUBIN,TOTAL 0.5 MG/DL (0.2-1.0); BLOOD UREA NITROGEN 10 MG/DL (7-18); CALCIUM LEVEL 9.2 MG/DL (8.5-10.1); CARBON DIOXIDE LEVEL 29 MEQ/L (21-32); CHLORIDE LEVEL 102 MEQ/L (98-107); CHOLESTEROL LEVEL 288 MG/DL (<200); CHOLESTEROL RISK RATIO 2.969 (<5); CREATININE FOR GFR 1.06 MG/DL (0.70-1.30); FREE T4 0.95 NG/DL (0.76-1.46); GLOMERULAR FILTRATION RATE > 60.0 (>56); GLUCOSE, FASTING 83 MG/DL (70-100); HDL CHOLESTEROL 97 MG/DL (>40); LDL CHOLESTEROL 161 MG/DL (<100); NON-HDL-C 191 MG/DL; POTASSIUM SERUM 4.2 MEQ/L (3.5-5.1); SODIUM LEVEL 138 MEQ/L (136-145); TOTAL 25(OH) VITAMIN D 11.1 NG/ML (30.0-100.0); TOTAL PROTEIN 7.5 GM/DL (6.4-8.2); TRIGLYCERIDES LEVEL 151 MG/DL (<150); VITAMIN B12 LEVEL 310 PG/ML
[2018-11-05 17:09] LABS: FOLATE 14.3 NG/ML
== END ==
LOC: M SFHCPLAZ 11:21
PROVIDERS: ATTEND Nurse Practitioner Family
DX: I10 Essential (primary) hypertension (principal); Z86.2 Personal history of diseases of the blood and blood-forming organs and certain disorders involving the immune mechanism; E55.9 Vitamin D deficiency, unspecified; Z87.898 Personal history of other specified conditions

== ENCOUNTER → 2018-11-05 | Outpatient (CLI) | payer OTHER | LOC: M OUTALCOH 08:48 | PROVIDERS: ATTEND Psychiatry & Neurology Psychiatry | DX: F10.20 Alcohol dependence, uncomplicated (principal) ==

== ENCOUNTER → 2019-04-22 | Outpatient (CLI) | payer OTHER | LOC: M OUTALCOH 08:09 | PROVIDERS: ATTEND Psychiatry & Neurology Psychiatry | DX: F10.20 Alcohol dependence, uncomplicated (principal) ==

== ENCOUNTER → 2019-06-11 | Outpatient (CLI) | payer OTHER | LOC: M OUTALCOH 08:13 | PROVIDERS: ATTEND Psychiatry & Neurology Psychiatry | DX: F10.20 Alcohol dependence, uncomplicated (principal) ==

== ENCOUNTER 2019-06-19 15:05 | Outpatient (RCR) | payer OTHER | END 2019-06-20 | LOC: M OUTALCOH 15:05 | PROVIDERS: ATTEND Psychiatry & Neurology Psychiatry | DX: F10.20 Alcohol dependence, uncomplicated (principal); F17.200 Nicotine dependence, unspecified, uncomplicated ==

== ENCOUNTER 2020-02-08 09:30 | Inpatient (IN) | payer OTHER ==
[~2020-02-08] VITALS: Ht 182.9 cm; Wt 81.0 kg
[2020-02-08 10:33] LABS: BASO % 0.3 % (0.0-1.0); EOS # 0.2 10^3/uL (0.0-0.5); EOS % 2.1 % (0.0-3.0); HEMATOCRIT 42.2 % (42.0-52.0); HEMOGLOBIN 14.1 g/dl (13.5-17.5); LYMPH % 24.8 % (24.0-44.0); MEAN CORPUSCULAR HEMOGLOBIN 30.8 pg (27.0-33.0); MEAN CORPUSCULAR HGB CONC 33.4 g/dl (32.0-36.5); MEAN CORPUSCULAR VOLUME 92.1 fl (80.0-96.0); MONO # 0.9 10^3/uL (0.0-0.8); MONO % 11.2 % (0.0-5.0); NEUTROPHILS # 4.9 10^3/uL (1.5-8.5); NEUTROPHILS % 61.3 % (36.0-66.0); PLATELET COUNT, AUTOMATED 271 10^3/uL (150-450); RED BLOOD COUNT 4.58 10^6/uL (4.30-6.10)
[2020-02-08 10:43] LABS: INR 1.45; PROTHROMBIN TIME 17.3 SECONDS (11.8-14.0)
[2020-02-08 10:44] LABS: PARTIAL THROMBOPLASTIN TIME 38.5 SECONDS (25.0-38.4)
--- NOTE | 2020-02-08 11:10 | REP ---
CHEST, SINGLE VIEW: Single view of the chest is performed. There is mild cardiomegaly. I see no acute infiltrate. The mediastinal silhouette is unremarkable. IMPRESSION: Mild cardiomegaly. No evidence of acute infiltrate. Electronically Signed by Vin Shannon MD 02/08/2020 12:09 P
[2020-02-08 11:25] LABS: ALBUMIN 3.4 GM/DL (3.2-5.2); BILIRUBIN,DIRECT 0.5 MG/DL (0.0-0.2); BILIRUBIN,TOTAL 1.2 MG/DL (0.2-1.0); CALCIUM LEVEL 8.8 MG/DL (8.8-10.2); CK-MB VALUE MASS 5.1 NG/ML (<3.6); CREATININE FOR GFR 1.66 MG/DL (0.70-1.30); GLOMERULAR FILTRATION RATE 45.2 (>49); MB/CK RELATIVE INDEX 1.55 (< OR =4); POTASSIUM SERUM 3.8 MEQ/L (3.5-5.1); THYROID STIMULATING HORMONE 5.43 uIU/ML (0.358-3.740); TOTAL PROTEIN 6.7 GM/DL (6.4-8.2); TROPONIN I 0.07 NG/ML (< 0.10)
[2020-02-08] MEDS ORDERED: FUROSEMIDE 40MG/4ML VIAL (J1940) IV ONE (11:45)
--- NOTE | 2020-02-08 11:46 | REP ---
REASON: Swelling. COMPARISON: None. The right testicle measures 4.8 x 3.7 x 2.87 cm and the left testicle measures 4.1 x 2.8 x 2.7 cm. The testicular parenchymal echo pattern is within normal limits bilaterally. The testicular vascular pattern is within normal limits bilaterally. The right testicle RI is 0.51 and the left is 0.51. Bilateral incidental spermatoceles are noted. There are two on the right, one 2 mm, the other 7 mm and there is one on the left measuring 6 mm. [id number] imaging shows the testicular parenchymal echo pattern to be symmetric. There is right-sided scrotal wall edema measuring 4 cm, where the left scrotal wall measured in the same plane to be 2.9 cm. This is severe on the right and more moderate on the left. There is a small hydrocele bilaterally. IMPRESSION: 1. Significant scrotal wall edema. Etiology uncertain, correlate clinically. 2. Small bilateral hydroceles. 3. Tiny incidental bilateral spermatoceles. Electronically Signed by New Manzo DO 02/08/2020 03:18 P
[2020-02-08] MEDS ORDERED: BESI0.6S OD (12:04)
[2020-02-08] MEDS ORDERED: BRIM0.2S13 OD (12:04)
[2020-02-08] MEDS ORDERED: DORZ2SOL5 OD (12:04)
[2020-02-08] MEDS ORDERED: ACET-907 PO (12:04)
[2020-02-08] MEDS ORDERED: ACETAMINOPHEN TAB 650MG DOSE (2X325MG) PO PRN (12:30)
[2020-02-08] MEDS ORDERED: hydrALAZINE 20MG/ML 1ML VIAL (J0360 PER 20MG) IV ONE (12:45)
[2020-02-08] MEDS ORDERED: ENTER DRUG NAME HERE (PATIENT'S OWN MED) OD SCH (13:00)
[2020-02-08 14:00] VITALS: BP 218/122
[2020-02-08] MEDS: hydrALAZINE 20MG/ML 1ML VIAL (J0360 PER 20MG) IV PRN (14:23)
[2020-02-08] MEDS: HEPARIN SOD (PORCINE) 5000UNITS/ML VIAL (J1644 PER 1000UNITS) SC SCH ×2 (14:48→20:58)
[2020-02-08] MEDS: POTASSIUM CHLORIDE 10 MEQ SR TABLET PO SCH ×2 (14:48→20:54)
[2020-02-08 15:00] VITALS: BP 196/94
[2020-02-08] MEDS: COSOPT OCUMETER PLUS 10ML (DORZOLAMIDE/TIMOLOL) OD SCH ×2 (15:04→20:56)
[2020-02-08] MEDS: BRIMONIDINE 0.15% OPHTH SOLN 5 ML OD SCH ×2 (15:04→20:56)
[2020-02-08] MEDS ORDERED: hydrALAZINE 20MG/ML 1ML VIAL (J0360 PER 20MG) IV STA (15:18)
[2020-02-08 16:00] VITALS: BP 194/92
[2020-02-08 16:00] LABS: FREE T4 1.33 NG/DL (0.76-1.46); TROPONIN I 0.07 NG/ML (< 0.10)
[2020-02-08 16:17] LABS: HEPATITIS B SURFACE ANTIGEN NEGATIVE (NEGATIVE)
[2020-02-08] MEDS ORDERED: LABETALOL 100MG/20ML VIAL IV STA (16:40)
[2020-02-08 16:44] LABS: HEPATITIS B CORE ANTIBODY IGM NEGATIVE (NEGATIVE); HEPATITIS C VIRUS ABY INDEX 0.1 INDEX (<0.8)
[2020-02-08] MEDS ORDERED: PERCOCET 5MG/325MG TAB PO PRN ×2 (16:45)
[2020-02-08] MEDS ORDERED: POTASSIUM CHLORIDE 10 MEQ SR TABLET PO ONE (16:45)
[2020-02-08 16:47] LABS: HEPATITIS A ANTIBODY IGM NEGATIVE (NEGATIVE)
--- NOTE | 2020-02-08 17:49 | HPEPDOC ---
[facility] Medical History & Physical Date of Admission Feb 08, 2020 Date of Service: Feb 08, 2020 Primary Care Physician: IVAN RECIO NP SAVANNAH Attending Physician: ELISSA SELBY MD History and Physical PRIMARY CARE PROVIDER: Ivan Recio NP ATTENDING: Dr. Elissa Selby CHIEF COMPLAINT: Lower extremity swelling HISTORY OF PRESENT ILLNESS: Patient is a 59 year old male presenting with chief complaint of bilateral lower extremity swelling. Patient states that for the past 2 weeks he has had ascending lower extremity swelling first the left leg than the right leg and up to his thighs and then finally all the way to his testicles. He states he did not come to a physician earlier because he was hoping it would go away on its own and it was not until the chafing on his testicles began that he decided it was time to come into the emergency department. He denies any fever, chills, unexpected weight change, chest pain, difficulty breathing, cough, orthopnea, or abdominal pain Presentation to the emergency department, his blood pressure was elevated, he was tachycardic, with acute kidney injury, elevated transaminases, and an elevated BNP of 10,621 so the hospitalist service was called for admission on suspicion of acute congestive heart failure. PAST MEDICAL HISTORY: Hypertension Grade 1 LV diastolic dysfunction with EF of 60% Right-sided corneal abrasion Left-sided glaucoma History of alcohol use disorder Nicotine use disorder PAST SURGICAL HISTORY: None SOCIAL HISTORY: Admits to drinking 2 tall boys on weekends, none during the weekday, 3 pack per day smoker, history of marijuana use, denies any heroin, cocaine, or PCP use. No Pets at home. Lives in a boarding house. FAMILY HISTORY: Father of a brain aneurysm Mother is , history of arthritis, diabetes mellitus Sister and brother are both healthy ALLERGIES: Please see below. REVIEW OF SYSTEMS: GENERAL: Denies fevers, chills, recent unexpected weight change, night sweats, hemoptysis HEENT: Denies headache, dizziness, vision changes, hearing loss, sore throat CARDIOVASCULAR: Denies chest pain, palpitations, orthopnea. Admits to bilateral LE edema. RESPIRATORY: Denies shortness of breath, wheezing, cough GASTROINTESTINAL: denies nausea, vomiting, abdominal pain, constipation, diarrhea, bloody stool GENITOURINARY: Denies dysuria,urinary urgency, hematuria. MUSCULOSKELETAL: Denies muscle/joint pain, weakness, stiffness NEUROLOGICAL: Denies any numbness/tingling, focal weakness, or syncope HOME MEDICATIONS: Please see below. PHYSICAL EXAMINATION: Vitals: (see below) General: No acute distress, laying comfortably in bed. HEENT: Normocephalic, atraumatic. EOMI. No scleral icterus. Moist mucous membranes. No pharyngeal erythema or uvular deviation. Neck: JVD up to the level of the earlobe, no lymphadenopathy, or thyromegaly. Cardiac: RRR, Normal S1 and S2, No murmurs, gallops, rubs. Pulm: Clear to auscultation b/l. Symmetric thorax. No wheezing, crackles, rhonc hi Abd: Bowel Sounds present. Abdomen is soft, non-tender, mild distention. No guarding, rebound tenderness, or rigidity. Mild hepatomegaly, no splenomegaly. No masses or eccymosis. : Grossly edematous testicles (size of grape fruit) and penis without signs of inflammation. Ext: 2+ pitting edema in bilateral lower extremities up to the level of the lumbar spine. Neuro: CN 2-12 intact. No focal neuro deficits. LABORATORY DATA: See below. IMAGIN02/08/20 scrotal ultrasound: 1. Significant scrotal wall edema. Etiology uncertain, correlate clinically. 2. Small bilateral hydroceles. 3. Tiny incidental bilateral spermatoceles. 02/08/20 chest x-ray: Mild cardiomegaly. No evidence of acute infiltrate. MICROBIOLOGY: Please see below. ASSESSMENT/PLAN: #. Bilateral lower extremity edema Given patient's history, physical, and elevated BNP with impaired renal function this is most likely secondary to patient's known diastolic dysfunction and a result of an acute heart failure exacerbation. I/Os, daily weights, insert quinn catheter, low sodium diet, telemetry ordered, 40 mg IV BID based on his response so far to the lasix, KCL supplementation, repeat echo ordered. Tylenol and percocet ordered for painful LE, I anticipate this will improve with diuresis #. Hypertensive emergency -Given patient's acute kidney injury and his elevated blood pressure this would qualify as hypertensive emergency. His blood pressure should come down as he is diuresed further. Order is in for hydralazine PRN for SBP>160 every 6 hours. #. 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 His CBC was WNL today, will continue to trend this and may consider requesting records from [facility] onc[facility] for confirmation. #. Acute Kidney Injury I suspect this is also secondary to renal congestion from his fluid overload. Creatinine will likely decrease as he continues to be diuresed. #. Transaminitis - Most likely a result of congestive hepatopathy from CHF. Hepatitis profile ordered. #. Alcohol use disorder -Patient states he does not drink as much as he did previously. Will monitor for signs of withdrawal. #. Tobacco use disorder - Uninterested in nicotine replacement therapy at this time, has cut back from 3 PPD to 2 cigs/day allegedly #. History of glaucoma -Continue home medications -DVT prophy: heparin, teds/sequentials Vital Signs Vital Signs Date Time Temp Pulse Resp B/P (MAP) Pulse Ox O2 Delivery O2 Flow Rate FiO2 02/08/20 16:00 194/92 (126) 02/08/20 14:00 97.2 98 18 97 Room Air Laboratory Data Labs 24H Laboratory Tests 2 02/08/20 10:18: Immature Granulocyte % (Auto) 0.3, Neutrophils (%) (Auto) 61.3, Lymphocytes (%) (Auto) 24.8, Monocytes (%) (Auto) 11.2H, Eosinophils (%) (Auto) 2.1, Basophils (%) (Auto) 0.3, Neutrophils # (Auto) 4.9, Lymphocytes # (Auto) 2.0, Monocytes # (Auto) 0.9H, Eosinophils # (Auto) 0.2, Basophils # (Auto) 0.0, Nucleated Red Blood Cells % (auto) 0.0, Prothrombin Time 17.3H, Prothromb Time International Ratio 1.45, Activated Partial Thromboplast Time 38.5H, Anion Gap 10, Glomerular Filtration Rate 45.2L, Calcium Level 8.8, Total Bilirubin 1.2H, Direct Bilirubin 0.5H, Aspartate Amino Transf (AST/SGOT) 172H, Alanine Aminotransferase (ALT/SGPT) 152H, Alkaline Phosphatase 165H, Total Creatine Kinase 329H, Creatine Kinase MB 5.1H, Creatine Kinase MB Relative Index 1.55, Troponin I 0.07, YW-Hug-G-Type Natriuretic Peptide 82500O, Total Protein 6.7, Albumin 3.4, Albumin/Globulin Ratio 1.03, Thyroid Stimulating Hormone (TSH) 5.430H 02/08/20 15:21: Troponin I 0.07, Free Thyroxine 1.33, Hepatitis A IgM Antibody NEGATIVE, Hepatitis B Surface Antigen NEGATIVE, Hepatitis B Core IgM Antibody NEGATIVE, Hepatitis C Antibody Index 0.1 CBC/BMP Laboratory Tests 02/08/20 10:18 Home Medications Scheduled Besifloxacin HCl (Besivance) 0.6% 5ML Drops.susp, 1 DROP OD QID Brimonidine Tartrate (Brimonidine Tartrate) 0.2% 5ML Drops, 1 DROP OD BID Dorzolamide HCl/Timolol Maleat (Dorzolamide-Timolol Eye Drops) 10 Ml Drops, 1 DROP OD BID Scheduled PRN Acetaminophen (Tylenol) 325 Mg Tablet, 650 MG PO QID PRN for PAIN Allergies Coded Allergies: No Known Allergies (Unverified , 03/28/17) A-FIB/CHADSVASC A-FIB History Current/History of A-Fib/PAF?: No GME ATTESTATION GME ATTESTATION My faculty preceptor for this patient encounter was physically present during the encounter and was fully available. All aspects of the patient interview, examination, medical decision making process, and medical care plan development were reviewed and approved by the faculty preceptor. The faculty preceptor is aw are and concurs with the plan as stated in the body of this note and will attest to such by his/her cosignature. INGA FAIRCHILD DO Feb 08, 2020 17:49
[2020-02-08 18:00] VITALS: BP 160/85
[2020-02-08] MEDS ORDERED: FUROSEMIDE 40MG/4ML VIAL (J1940) IV SCH (18:00)
--- NOTE | 2020-02-08 19:08 | ECGEPIP ---
[facility] - ED Test Date: 2020-02-08 Pat Name: COLETTE FLYNN Department: Room: - Gender: Male Data Scientist: : [id number] Requested By: SURAJ DWYER Order Number: [id number] Reading MD: Laurie Loredo Measurements Intervals Dubach Rate: 106 P: 26 VT: 144 QRS: 7 QRSD: 97 T: 50 QT: 376 QTc: 500 Interpretive Statements SINUS TACHYCARDIA LEFT ATRIAL ENLARGEMENT POSSIBLE RIGHT VENTRICULAR CONDUCTION DELAY POSSIBLE LEFT VENTRICULAR HYPERTROPHY SEPTAL CA, POSSIBLE, OLD INCREASED RATE 03/29/17 Electronically Signed on 02-08-2020 19:07:53 EDT by Laurie Loredo
[2020-02-08 20:00] VITALS: BP 144/69
[2020-02-08] MEDS ORDERED: amLODIPine 5 MG TAB PO SCH (21:00)
[2020-02-09] VITALS (7 sets, daily range): BP systolic 142–168; BP diastolic 70–98
[2020-02-09] MEDS ORDERED: FUROSEMIDE 40MG/4ML VIAL (J1940) IV SCH
[2020-02-09] MEDS: hydrALAZINE 20MG/ML 1ML VIAL (J0360 PER 20MG) IV PRN (04:30)
[2020-02-09] MEDS: HEPARIN SOD (PORCINE) 5000UNITS/ML VIAL (J1644 PER 1000UNITS) SC SCH ×3 (05:22→21:43)
[2020-02-09 06:19] LABS: HEMATOCRIT 45.2 % (42.0-52.0); HEMOGLOBIN 15.3 g/dl (13.5-17.5); MEAN CORPUSCULAR HEMOGLOBIN 31.1 pg (27.0-33.0); MEAN CORPUSCULAR HGB CONC 33.8 g/dl (32.0-36.5); MEAN CORPUSCULAR VOLUME 91.9 fl (80.0-96.0); PLATELET COUNT, AUTOMATED 277 10^3/uL (150-450); RED BLOOD COUNT 4.92 10^6/uL (4.30-6.10); WHITE BLOOD COUNT 7.1 10^3/uL (4.0-10.0)
[2020-02-09 06:44] LABS: CHOLESTEROL RISK RATIO 3.09 (<5); CREATININE FOR GFR 1.56 MG/DL (0.70-1.30); GLOMERULAR FILTRATION RATE 48.6 (>49); MAGNESIUM LEVEL 1.6 MG/DL (1.8-2.4); PHOSPHORUS LEVEL 2.8 MG/DL (2.5-4.9); POTASSIUM SERUM 3.3 MEQ/L (3.5-5.1); TROPONIN I 0.07 NG/ML (< 0.10)
[2020-02-09 08:25] LABS: ALBUMIN 3.5 GM/DL (3.2-5.2); BILIRUBIN,DIRECT 0.6 MG/DL (0.0-0.2); BILIRUBIN,TOTAL 1.5 MG/DL (0.2-1.0); TOTAL PROTEIN 6.9 GM/DL (6.4-8.2)
[2020-02-09] MEDS: COSOPT OCUMETER PLUS 10ML (DORZOLAMIDE/TIMOLOL) OD SCH ×2 (09:43→21:42)
[2020-02-09] MEDS: BRIMONIDINE 0.15% OPHTH SOLN 5 ML OD SCH ×2 (09:43→21:42)
[2020-02-09] MEDS: POTASSIUM CHLORIDE 10 MEQ SR TABLET PO SCH ×2 (09:43→21:42)
[2020-02-09] MEDS ORDERED: MAGNESIUM OXIDE 400 MG TAB (MAG-OX) PO ONE (13:45)
[2020-02-09] MEDS: amLODIPine 5 MG TAB PO SCH ×2 (13:53→21:42)
--- NOTE | 2020-02-09 14:04 | IPNPDOC ---
Text Note Date of Service The patient was seen on 02/09/20. NOTE SUBJECTIVE: Patient seen and examined this morning at bedside, no acute events overnight. States he urinated significant amounts. Notes that his feet still have a burning sensation, but it is improved from day prior. Otherwise denies any fevers, chills, chest pain, difficulty breathing, abdominal pain, nausea, vomiting. PHYSICAL EXAMINATION: Vitals: (see below) General: No acute distress, sitting on side of bed working with PT. HEENT: Normocephalic, atraumatic. EOMI. No scleral icterus. Moist mucous membranes. No pharyngeal erythema or uvular deviation. Neck: Mild JVD, no lymphadenopathy, or thyromegaly. Cardiac: RRR, Normal S1 and S2, No murmurs, gallops, rubs. Pulm: Clear to auscultation b/l. Symmetric thorax. No wheezing, crackles, rhonchi Abd: Bowel Sounds present. Abdomen is soft, non-tender, mild distention. No guarding, rebound tenderness, or rigidity. Mild hepatomegaly, no splenomegaly. : edematous testicles dramatically improved from day prior. Ext: 2+ pitting edema in bilateral lower extremities up to the level of the thighs. Neuro: CN 2-12 intact. No focal neuro deficits. LABORATORY DATA, MICROBIOLOGY: Please see below. ASSESSMENT/PLAN: #. Bilateral lower extremity edema secondary to suspected acute diastolic CHF exacerbation Echo ordered but not done. Patient is net negative 7 liters in the past 24 hours. Will hold lasix today. His edema is improving, continue I/Os, daily weights, low sodium diet, telemetry. Tylenol, percocet for pain. #. Hypertension -Continue home amlodipine, hydralazine with holding parameters #. Acute Kidney Injury Creatinine mildly improved after significant diuresis (net negative 7.8 Liters in last 24 hours from 3 doses of 40 mg IV lasix administration) discontinuing lasix for the time being. #. 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 Patient's CBC during this visit has been completely normal however. Will continue to monitor, may consider repeating peripheral smear/flow cytometry during his inpatient stay. prior to final results of testing and apparently followed up with someone in [place] and was told that he did not have lymphoma. His CBC was WNL today, will continue to trend this and may consider requesting records from [facility]ology for confirmation. #. Transaminitis - Improved from yesterday, likely result of congestive hepatopathy. - Hepatitis panel negative. #. Alcohol use disorder -No signs of withdrawal. #. Tobacco use disorder - Uninterested in nicotine replacement therapy at this time, has cut back from 3 PPD to 2 cigs/day allegedly #. History of glaucoma -Continue home medications DVT prophylaxis: heparin, teds, seqs. DISPOSITION: pending clinical improvement VS,Fishbone, I+O VS, Fishbone, I+O Laboratory Tests 02/09/20 05:54 Vital Signs Date Time Temp Pulse Resp B/P (MAP) Pulse Ox O2 Delivery O2 Flow Rate FiO2 02/09/20 12:00 97.4 80 17 154/70 (98) 93 Room Air I&O- Last 24 Hours up to 6 AM 02/09/20 06:00 Intake Total 1200 ml Output Total 7950 ml Balance -6750 ml GME ATTESTATION GME ATTESTATION My faculty preceptor for this patient encounter was physically present during the encounter and was fully available. All aspects of the patient interview, examination, medical decision making process, and medical care plan development were reviewed and approved by the faculty preceptor. The faculty preceptor is aware and concurs with the plan as stated in the body of this note and will attest to such by his/her cosignature. ATTENDING NOTE I have personally performed a face to face diagnostic evaluation on this patient. I have reviewed and agree with the resident's care plan documented above. INGA FAIRCHILD DO Feb 09, 2020 14:03 MAYUR NULL MD Feb 11, 2020 11:11
[2020-02-09] MEDS: MAGNESIUM OXIDE 400 MG TAB (MAG-OX) PO SCH (14:16)
[2020-02-09] MEDS: **hydrALAZINE HCL** 25 MG TAB PO SCH ×2 (14:52→21:43)
[2020-02-10] VITALS: BP 148/82
[2020-02-10 04:00] VITALS: BP 140/84
[2020-02-10] MEDS: HEPARIN SOD (PORCINE) 5000UNITS/ML VIAL (J1644 PER 1000UNITS) SC SCH ×3 (05:48→21:22)
[2020-02-10] MEDS: **hydrALAZINE HCL** 25 MG TAB PO SCH ×3 (05:48→21:11)
[2020-02-10 05:51] LABS: BASO % 0.2 % (0.0-1.0); EOS # 0.4 10^3/uL (0.0-0.5); EOS % 5.6 % (0.0-3.0); HEMATOCRIT 39.5 % (42.0-52.0); LYMPH % 30.5 % (24.0-44.0); MEAN CORPUSCULAR HEMOGLOBIN 30.9 pg (27.0-33.0); MEAN CORPUSCULAR HGB CONC 33.7 g/dl (32.0-36.5); MEAN CORPUSCULAR VOLUME 91.9 fl (80.0-96.0); MONO # 0.9 10^3/uL (0.0-0.8); MONO % 12.9 % (0.0-5.0); NEUTROPHILS # 3.3 10^3/uL (1.5-8.5); NEUTROPHILS % 50.5 % (36.0-66.0); PLATELET COUNT, AUTOMATED 255 10^3/uL (150-450); WHITE BLOOD COUNT 6.6 10^3/uL (4.0-10.0)
[2020-02-10 05:58] LABS: HEMOGLOBIN 13.3 g/dl (13.5-17.5)
[2020-02-10 06:21] LABS: CALCIUM LEVEL 8.3 MG/DL (8.8-10.2); CREATININE FOR GFR 1.52 MG/DL (0.70-1.30); POTASSIUM SERUM 3.6 MEQ/L (3.5-5.1)
[2020-02-10 07:41] LABS: ALBUMIN 2.9 GM/DL (3.2-5.2); BILIRUBIN,DIRECT 0.6 MG/DL (0.0-0.2); BILIRUBIN,TOTAL 1.4 MG/DL (0.2-1.0); MAGNESIUM LEVEL 1.8 MG/DL (1.8-2.4); TOTAL PROTEIN 5.7 GM/DL (6.4-8.2)
[2020-02-10 08:00] VITALS: BP 168/80
[2020-02-10] MEDS: MAGNESIUM OXIDE 400 MG TAB (MAG-OX) PO SCH (08:18)
[2020-02-10] MEDS: POTASSIUM CHLORIDE 10 MEQ SR TABLET PO SCH ×2 (08:18→21:22)
[2020-02-10] MEDS: BRIMONIDINE 0.15% OPHTH SOLN 5 ML OD SCH ×2 (08:19→21:22)
[2020-02-10] MEDS: amLODIPine 5 MG TAB PO SCH ×2 (08:19→21:23)
[2020-02-10] MEDS: COSOPT OCUMETER PLUS 10ML (DORZOLAMIDE/TIMOLOL) OD SCH ×2 (08:19→21:22)
[2020-02-10] MEDS ORDERED: SLF 3 ML SYR IV PRN (10:00)
--- NOTE | 2020-02-10 11:37 | IPNPDOC ---
Text Note Date of Service The patient was seen on 02/10/20. NOTE SUBJECTIVE: Patient seen and examined this morning at bedside, no acute events overnight. Continues to experience soreness in his legs. Denies any fevers, chills, chest pain, difficulty breathing, abdominal pain, nausea, vomiting. PHYSICAL EXAMINATION: Vitals: (see below) General: No acute distress, sitting on side of bed working with PT. HEENT: Normocephalic, atraumatic. EOMI. No scleral icterus. Moist mucous membranes. No pharyngeal erythema or uvular deviation. Neck: Mild JVD, no lymphadenopathy, or thyromegaly. Cardiac: RRR, Normal S1 and S2, No murmurs, gallops, rubs. Pulm: Clear to auscultation b/l. Symmetric thorax. No wheezing, crackles, rhonchi Abd: Bowel Sounds present. Abdomen is soft, non-tender, mild distention. No guarding, rebound tenderness, or rigidity. Mild hepatomegaly, no splenomegaly. : edematous testicles dramatically improved from day prior. Ext: 2+ pitting edema in bilateral lower extremities. Neuro: CN 2-12 intact. No focal neuro deficits. LABORATORY DATA, MICROBIOLOGY: Please see below. ASSESSMENT/PLAN: #. Bilateral lower extremity edema secondary to suspected acute diastolic CHF exacerbation Echo done yesterday afternoon, result pending. Will transition patient to 40 mg PO lasix daily. His edema continues to improve, continue I/Os, daily weights, low sodium diet, telemetry. Tylenol, percocet for pain. #. Hypertension -Continue home amlodipine, hydralazine with holding parameters #. Acute Kidney Injury Creatinine continues to improve #. 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 Patient's CBC during this visit has been completely normal however. Repeat peripheral smear ordered, but after speaking with oncology and having them look at his labs from this visit, they feel this may have been an overcall and the results of his peripheral smear may have been skewed by his then acute alcohol use as well as a viral infection such as EBV. #. Transaminitis - Continues to improve, likely result of congestive hepatopathy. - Hepatitis panel negative. #. Alcohol use disorder -No signs of withdrawal. #. Tobacco use disorder - Uninterested in nicotine replacement therapy at this time, has cut back from 3 PPD to 2 cigs/day allegedly #. History of glaucoma -Continue home medications DVT prophylaxis: heparin, teds, seqs. DISPOSITION: possible DC tomorrow VS,Fishbone, I+O VS, Fishbone, I+O Laboratory Tests 02/10/20 04:57 Vital Signs Date Time Temp Pulse Resp B/P (MAP) Pulse Ox O2 Delivery O2 Flow Rate FiO2 02/10/20 08:19 85 168/80 02/10/20 08:00 97.9 20 96 Room Air I&O- Last 24 Hours up to 6 AM 02/10/20 06:00 Intake Total 780 ml Output Total 500 ml Balance 280 ml GME ATTESTATION GME ATTESTATION My faculty preceptor for this patient encounter was physically present during the encounter and was fully available. All aspects of the patient interview, examination, medical decision making process, and medical care plan development were reviewed and approved by the faculty preceptor. The faculty preceptor is aware and concurs with the plan as stated in the body of this note and will attest to such by his/her cosignature. ATTENDING NOTE I have personally performed a face to face diagnostic evaluation on this patient. I have reviewed and agree with the resident's care plan documented above. INGA FAIRCHILD DO Feb 10, 2020 11:37 MAYUR NULL MD Feb 11, 2020 11:17
[2020-02-10] MEDS ORDERED: FUROSEMIDE 40 MG TAB PO ONE (11:45)
[2020-02-10 12:00] VITALS: BP 158/91
[2020-02-10] MEDS: SLF 3 ML SYR IV SCH ×2 (14:00→21:23)
[2020-02-10 16:00] VITALS: BP 141/72
[2020-02-10 20:00] VITALS: BP 140/80
[2020-02-11] VITALS: BP_SYST 130; BP_SYST 150; BP_DIAS 60; BP_DIAS 90
[2020-02-11 04:00] VITALS: BP 136/74
[2020-02-11] MEDS: **hydrALAZINE HCL** 25 MG TAB PO SCH ×2 (05:16→05:33)
[2020-02-11] MEDS: HEPARIN SOD (PORCINE) 5000UNITS/ML VIAL (J1644 PER 1000UNITS) SC SCH (05:33)
[2020-02-11] MEDS: SLF 3 ML SYR IV SCH (05:33)
[2020-02-11 06:23] VITALS: BP 160/86
[2020-02-11 06:36] LABS: CALCIUM LEVEL 8.7 MG/DL (8.8-10.2); CREATININE FOR GFR 1.36 MG/DL (0.70-1.30); GLOMERULAR FILTRATION RATE 56.9 (>49); POTASSIUM SERUM 3.8 MEQ/L (3.5-5.1)
[2020-02-11 08:00] VITALS: BP 159/85
[2020-02-11] MEDS: POTASSIUM CHLORIDE 10 MEQ SR TABLET PO SCH (08:12)
[2020-02-11] MEDS: MAGNESIUM OXIDE 400 MG TAB (MAG-OX) PO SCH (08:12)
[2020-02-11 08:13] VITALS: BP 159/85
[2020-02-11] MEDS: amLODIPine 5 MG TAB PO SCH (08:13)
[2020-02-11] MEDS: BRIMONIDINE 0.15% OPHTH SOLN 5 ML OD SCH (08:13)
[2020-02-11] MEDS: COSOPT OCUMETER PLUS 10ML (DORZOLAMIDE/TIMOLOL) OD SCH (08:13)
[2020-02-11] MEDS ORDERED: FURO40TA2 PO (08:19)
[2020-02-11] MEDS ORDERED: MAG400TA PO (08:19)
[2020-02-11] MEDS ORDERED: KLOR10TA76 PO (08:20)
[2020-02-11] MEDS ORDERED: LISI-542 PO (08:20)
[2020-02-11] MEDS ORDERED: POTA10TA67 PO (08:27)
[2020-02-11] MEDS ORDERED: FUROSEMIDE 40 MG TAB PO SCH (09:00)
--- NOTE | 2020-02-11 11:04 | DS.PDOC ---
Discharge Summary General Date of Admission Feb 08, 2020 at 12:35 Date of Discharge 02/11/2020 Primary Care Physician: IVAN GUERRA NP Attending Physician: MAYUR NULL MD Discharge Summary PROCEDURES PERFORMED DURING STAY: Transthoracic echocardiogram. Results pending at time of discharge, please follow-up. ADMITTING/DISCHARGE DIAGNOSES: Acute unspecified CHF exacerbation Hypertensive emergency Hypertension Acute kidney injury History of alcohol use disorder Tobacco use disorder Glaucoma COMPLICATIONS/CHIEF COMPLAINT: Bilateral lower extremity edema HISTORY OF PRESENT ILLNESS/HOSPITAL COURSE: Patient is a 59 year old male presenting with chief complaint of bilateral lower extremity swelling. Patient states that for the past 2 weeks he has had ascending lower extremity swelling first the left leg than the right leg and up to his thighs and then finally all the way to his testicles. He states he did not come to a physician earlier because he was hoping it would go away on its own and it was not until the chafing on his testicles began that he decided it was time to come into the emergency department. He denies any fever, chills, unexpected weight change, chest pain, difficulty breathing, cough, orthopnea, or abdominal pain Presentation to the emergency department, his blood pressure was elevated, he was tachycardic, with acute kidney injury, elevated transaminases, and an elevated BNP of 10,621 so the hospitalist service was called for admission on suspicion of acute congestive heart failure. In the first 48 hours, the patient diuresed net negative 6.4 liters of fluid with significant symptomatic and clinical improvement in his lower extremity edema. His diuretic dose was decreased because of his output and he continued to progress. He was transitioned to oral Lasix on day 3 of his hospitalization without complication. Of note his blood pressure was somewhat difficult to control while inpatient as he was on hydralazine and amlodipine. However due to the side effect of peripheral edema with amlodipine this was discontinued and as his renal function had improved significantly he was started on a low-dose of lisinopril on the day he was discharged. An echocardiogram was performed on day 2 of his stay, however the results were not available so he was encouraged to follow-up on the results outpatient. He was discharged home with Lasix and instructions to follow-up with his primary care provider to recheck his electrolytes. DISCHARGE MEDICATIONS: Please see below. ALLERGIES: Please see below. Vitals: (see below) General: No acute distress, sitting on side of bed working with PT. HEENT: Normocephalic, atraumatic. EOMI. No scleral icterus. Moist mucous membranes. No pharyngeal erythema or uvular deviation. Neck: Mild JVD, no lymphadenopathy, or thyromegaly. Cardiac: RRR, Normal S1 and S2, No murmurs, gallops, rubs. Pulm: Clear to auscultation b/l. Symmetric thorax. No wheezing, crackles, rhonchi Abd: Bowel Sounds present. Abdomen is soft, non-tender, non-distended. Ext: 2+ pitting edema in bilateral lower extremities, significantly improved. Neuro: CN 2-12 intact. No focal neuro deficits. Psych: Normal mood and affect LABORATORY DATA: Please see below. IMAGIN02/08/20 scrotal ultrasound: 1. Significant scrotal wall edema. Etiology uncertain, correlate clinically. 2. Small bilateral hydroceles. 3. Tiny incidental bilateral spermatoceles. 02/08/20 chest x-ray: Mild cardiomegaly. No evidence of acute infiltrate. PROGNOSIS: stable ACTIVITY: [As tolerated]. DIET: Low-sodium DISCHARGE PLAN: Home DISCHARGE INSTRUCTIONS: 1. Please return to hospital symptoms worsen. 2. Please have primary care provider check your electrolytes on follow-up 3. Please have primary care provider follow-up on your echocardiogram results. DISCHARGE CONDITION: [Stable]. TIME SPENT ON DISCHARGE: 35 minutes. Vital Signs/I&Os Vital Signs Date Time Temp Pulse Resp B/P (MAP) Pulse Ox O2 Delivery O2 Flow Rate FiO2 02/11/20 08:13 70 159/85 02/11/20 08:00 96.7 20 97 Room Air I&O- Last 24 Hours up to 6 AM 02/11/20 05:59 Intake Total 1050 ml Output Total 1500 ml Balance -450 ml Laboratory Data Labs 24H Laboratory Tests 2 02/11/20 05:54: Anion Gap 9, Glomerular Filtration Rate 56.9, Calcium Level 8.7L CBC/BMP Laboratory Tests 02/11/20 05:54 Discharge Medications Scheduled Besifloxacin HCl (Besivance) 0.6% 5ML Drops.susp, 1 DROP OD QID, (Reported) Brimonidine Tartrate (Brimonidine Tartrate) 0.2% 5ML Drops, 1 DROP OD BID, (Reported) Dorzolamide HCl/Timolol Maleat (Dorzolamide-Timolol Eye Drops) 10 Ml Drops, 1 DROP OD BID, (Reported) Furosemide (Furosemide) 40 Mg Tablet, 40 MG PO BID Please take 1 tablet by mouth twice daily. Lisinopril (Lisinopril) 5 Mg Tablet, 1 TAB PO DAILY Magnesium Oxide (Magnesium Oxide) 400 Mg Tablet, 400 MG PO DAILY Please take 1 tablet by mouth once daily. Potassium Chloride (Potassium Chloride) 10 Meq Tab.er.prt, 1 TAB PO BID Scheduled PRN Acetaminophen (Tylenol) 325 Mg Tablet, 650 MG PO QID PRN for PAIN, (Reported) Allergies Coded Allergies: No Known Allergies (Unverified , 03/28/17) GME ATTESTATION GME ATTESTATION My faculty preceptor for this patient encounter was physically present during the encounter and was fully available. All aspects of the patient interview, examination, medical decision making process, and medical care plan development were reviewed and approved by the faculty preceptor. The faculty preceptor is aware and concurs with the plan as stated in the body of this note and will attest to such by his/her cosignature. INGA FAIRCHILD DO Feb 11, 2020 11:04
--- NOTE | 2020-02-11 20:55 | ECHO ---
DATE OF PROCEDURE: 02/09/2020 DATE OF : 1960 AGE: 59 REFERRING PHYSICIAN: Dr. Dylan Sanders PATIENT LOCATION: Room 3202 REASON FOR THE STUDY: Pedal edema. 2D MEASUREMENTS: IVS: 1.2 cm LV: 4.7 cm LVPW: 1.2 cm LA: 4.3 cm Aorta: 2.9 cm IVC: 2.2 cm DOPPLER MEASUREMENTS: Peak velocity across the aortic valve: 2.2 meters per second Peak velocity across the LVOT: 0.9 meters per second Mitral E: 0.94, Mitral A: 0.87 with a ratio of 1.1 Maximum tricuspid valve velocity: 2.7 meters per second 2D COMMENTS: 1. Normal left ventricular size, wall thickness but with a markedly depressed global left ventricular systolic function. There was severe diffuse hypokinesis and the estimated global left ventricular systolic ejection fraction is 20-25%. 2. Mildly enlarged left atrium. The right atrium also appeared to be enlarged. The right ventricle also was dilated with probably decreased systolic function. 3. The atrial septum appeared to be normal without evidence of defect or shunt. 4. Normal aortic root. 5. No pericardial effusion seen. 6. Mildly calcified aortic valve with minimally restricted leaflet motion. Mildly calcified mitral annulus with normal anterior mitral valve leaflet motion. Normal tricuspid valve and pulmonic valve. The proximal pulmonary artery branches were not well visualized. 7. The inferior vena cava was dilated, central venous pressure is probably elevated. DOPPLER: It detects moderate mitral regurgitation, moderate tricuspid regurgitation, and mild pulmonic regurgitation. The calculated pulmonary artery systolic pressure varies between 30-40 mmHg. Assessment of the left ventricular diastolic function appeared to be normal. IMPRESSION: 1. Severe global left ventricular systolic dysfunction. 2. Aortic valve sclerosis with mild aortic stenosis but no aortic regurgitation. 3. Mitral annulus calcification with moderate mitral regurgitation. 4. Moderate tricuspid regurgitation with mild pulmonary hypertension. This, however, may be underestimated. The right atrium and the right ventricle appear to be mildly enlarged and right ventricular free wall appeared to be hypokinetic. 5. Global longitudinal strain/GLS was calculated at minus 8.5%, markedly abnormal. This may be a marker of poor cardiac prognostic.
== END 2020-02-11 12:51 | disposition home health service (06) | DRG 194 ==
LOC: M ED 09:30 → M ED INP 12:35 → ENRESERV 12:39 → M PCU 13:48
PROVIDERS: ADMIT Internal Medicine; ATTEND Internal Medicine Nephrology
DX: I11.0 Hypertensive heart disease with heart failure (principal); N17.9 Acute kidney failure, unspecified; I16.1 Hypertensive emergency; R74.0 Nonspecific elevation of levels of transaminase and lactic acid dehydrogenase [LDH]; F17.200 Nicotine dependence, unspecified, uncomplicated; H40.9 Unspecified glaucoma; Z79.899 Other long term (current) drug therapy; F10.10 Alcohol abuse, uncomplicated; I50.9 Heart failure, unspecified

== ENCOUNTER → 2020-02-24 | Outpatient (REF) | payer OTHER ==
[~2020-02-24] MED LIST changes: +ACET-907 PO; +BESI0.6S OD; +BRIM0.2S13 OD; +DORZ2SOL5 OD; +FURO40TA2 PO; +KLOR10TA76 PO; +LISI-542 PO; +MAG400TA PO; +POTA10TA67 PO
[2020-02-24 14:33] LABS: BILIRUBIN,TOTAL 0.7 MG/DL (0.2-1.0); CALCIUM LEVEL 9.3 MG/DL (8.8-10.2); CREATININE FOR GFR 1.5 MG/DL (0.70-1.30); GLOMERULAR FILTRATION RATE 50.8 (>49); POTASSIUM SERUM 4.4 MEQ/L (3.5-5.1)
[2020-02-24 14:34] LABS: ALBUMIN 3.6 GM/DL (3.2-5.2); CHOLESTEROL RISK RATIO 3.319 (<5); MAGNESIUM LEVEL 2.4 MG/DL (1.8-2.4); TOTAL PROTEIN 7.2 GM/DL (6.4-8.2)
[2020-02-24 14:40] LABS: TOTAL 25(OH) VITAMIN D 12.6 NG/ML (30.0-100.0)
== END ==
LOC: M SFHCPLAZ 11:19
PROVIDERS: ATTEND Nurse Practitioner Family
DX: I10 Essential (primary) hypertension (principal); E55.9 Vitamin D deficiency, unspecified

== ENCOUNTER → 2023-06-07 | Outpatient (CLI) | payer MEDICARE, OTHER ==
[~2023-06-07] MED LIST changes: +CYCL1SOL14 OD; -CYCL1SOL17 OD; -KLOR10TA76 PO; -LISI-542 PO; +LISI40TA4 PO; +LISI5TAB11 PO; -MAG400TA PO; +MAGN400T35 PO; +POTA-136 PO; +ROSU20TA61 PO
[2023-06-07 12:29] LABS: BASO % 0.2 % (0.0-1.0); EOS # 0.2 10^3/uL (0.0-0.5); EOS % 1.6 % (0.0-3.0); LYMPH # 1.1 10^3/uL (1.5-5.0); LYMPH % 11.3 % (24.0-44.0); MEAN CORPUSCULAR HEMOGLOBIN 34.1 pg (27.0-33.0); MEAN CORPUSCULAR HGB CONC 35.1 g/dl (32.0-36.5); MONO # 0.7 10^3/uL (0.0-0.8); MONO % 6.9 % (2.0-8.0); NEUTROPHILS # 7.9 10^3/uL (1.5-8.5); NEUTROPHILS % 79.7 % (36.0-66.0); PLATELET COUNT, AUTOMATED 243 10^3/uL (150-450); RED BLOOD COUNT 5.57 10^6/uL (4.30-6.10); WHITE BLOOD COUNT 9.9 10^3/uL (4.0-10.0)
[2023-06-07 12:31] LABS: HEMATOCRIT 54.2 % (42.0-52.0)
[2023-06-07 12:33] LABS: MEAN CORPUSCULAR VOLUME 97.3 fl (80.0-96.0)
[2023-06-07 12:40] LABS: HEMOGLOBIN A1c 4.5 % (4.0-6.0)
[2023-06-07 12:46] LABS: PERCENT SATURATION 24.2 % (19.7-50.0)
[2023-06-07 12:48] LABS: INR 1.03; PROTHROMBIN TIME 13.2 SECONDS (12.5-14.5)
[2023-06-07 12:51] LABS: ALBUMIN 4.3 G/DL (3.2-5.2); BILIRUBIN,TOTAL 0.9 MG/DL (0.3-1.2); CALCIUM LEVEL 9.7 MG/DL (8.3-10.6); CHOLESTEROL RISK RATIO 2.45 (<5); CREATININE FOR GFR 1.35 MG/DL (0.70-1.30); FREE T3 4.1 PG/ML (2.3-4.2); FREE T4 1.37 NG/DL (0.89-1.76); GLOMERULAR FILTRATION RATE 56.8 (>49); HDL CHOLESTEROL 80.9 MG/DL (>40); LDL CHOLESTEROL 95.9 MG/DL (<100); NON-HDL-C 118.1 MG/DL; POTASSIUM SERUM 4.2 MMOL/L (3.5-5.1); THYROID STIMULATING HORMONE 2.701 uIU/ML (0.55-4.78); TOTAL PROTEIN 8.3 G/DL (5.7-8.2)
== END ==
LOC: M LAB 11:32
PROVIDERS: ATTEND Nurse Practitioner Adult Health
DX: Z01.82 Encounter for allergy testing (principal); R53.83 Other fatigue; I10 Essential (primary) hypertension; E78.5 Hyperlipidemia, unspecified; Z79.899 Other long term (current) drug therapy

== ENCOUNTER 2023-12-12 18:58 | Inpatient (IN) | payer MEDICARE, MEDICAID ==
[~2023-12-12] VITALS: Ht 182.9 cm; Wt 51.2 kg
[2023-12-12] MEDS: NS 1,000 ML IV ONE ×2 (19:19→20:37)
[2023-12-12 19:28] LABS: BASO % 0.2 % (0.0-1.0); EOS # 0.1 10^3/uL (0.0-0.5); EOS % 0.6 % (0.0-3.0); HEMATOCRIT 44.7 % (42.0-52.0); HEMOGLOBIN 15.7 g/dl (13.5-17.5); LYMPH # 1.5 10^3/uL (1.5-5.0); LYMPH % 14.3 % (24.0-44.0); MEAN CORPUSCULAR HGB CONC 35.1 g/dl (32.0-36.5); MEAN CORPUSCULAR VOLUME 93.9 fl (80.0-96.0); MONO # 0.7 10^3/uL (0.0-0.8); MONO % 6.5 % (2.0-8.0); NEUTROPHILS # 7.9 10^3/uL (1.5-8.5); PLATELET COUNT, AUTOMATED 347 10^3/uL (150-450); RED BLOOD COUNT 4.76 10^6/uL (4.30-6.10); WHITE BLOOD COUNT 10.1 10^3/uL (4.0-10.0)
[2023-12-12 19:34] LABS: VENOUS HCO3 29.9 MMOL/L (23.0-27.0); VENOUS O2 SATURATION 43.1 % (60.0-80.0); VENOUS PARTIAL PRESSURE CO2 53.7 mmHg (38.0-50.0); VENOUS PH 7.363 UNITS (7.330-7.430); VENOUS STANDARD HCO3 25.5 MMOL/L; VENOUS TOTAL CO2 31.5 MMOL/L (24.0-28.0)
[2023-12-12 19:50] LABS: CK-MB VALUE MASS 1.6 NG/ML (<3.6)
[2023-12-12 19:52] LABS: ALBUMIN 3.4 G/DL (3.2-5.2); ALKALINE PHOSPHATASE 121 U/L (46-116); ALT/SGPT 13 U/L (7.0-40); AST/SGOT 27 U/L (<34); BILIRUBIN,DIRECT 0.4 MG/DL (<0.4); BLOOD UREA NITROGEN 13 MG/DL (9-23); CALCIUM LEVEL 9.5 MG/DL (8.3-10.6); CARBON DIOXIDE LEVEL 29 MMOL/L (20-31); CHLORIDE LEVEL 98 MMOL/L (98-107); CPK CREATINE PHOSPHOKINASE 132 U/L (46-171); CREATININE FOR GFR 1.12 MG/DL (0.70-1.30); GLOMERULAR FILTRATION RATE > 60.0 (>49); GLUCOSE, FASTING 123 MG/DL (74-106); MB/CK RELATIVE INDEX 1.21 (< OR =4); POTASSIUM SERUM 3.7 MMOL/L (3.5-5.1); SODIUM LEVEL 136 MMOL/L (136-145); TOTAL PROTEIN 7.5 G/DL (5.7-8.2)
[2023-12-12] MEDS: NS 500 ML IV ONE (20:30)
[2023-12-12] MEDS ORDERED: ISOVUE-370 76% 100ML VIAL As Ordered ONE (20:36)
[2023-12-12] MEDS: lisinopriL 40MG TAB PO ONE (20:37)
[2023-12-12] MEDS: NITROGLYCERIN 2% OINT 1 GM *U/D* PKT TOP ONE (20:38)
[2023-12-12 20:56] LABS: PROCALCITONIN 0.07 ng/ml
[2023-12-13] VITALS (7 sets, daily range): BP systolic 182–202; BP diastolic 72–88; TEMP 97.3–98.2; O2SAT 95–96
[2023-12-13] MEDS ORDERED: NORCO, ANEXSIA 5/325MG TABLET (HYDROcodone/ACETAMINOPHEN) PO PRN (00:10)
[2023-12-13] MEDS ORDERED: ACETAMINOPHEN TAB 650MG DOSE (2X325MG) PO PRN (00:10)
[2023-12-13] MEDS ORDERED: ONDANSETRON 4MG 2ML VIAL IV PRN (00:10)
[2023-12-13] MEDS: IPRATROPIUM 0.5MG/ALBUTEROL 2.5MG INH SOL UD 3ML (DUONEB) NEB SCH (00:47)
[2023-12-13] MEDS: HYDROMORPHONE HCL 0.5 MG/ 0.5 ML SYRINGE IV PRN (03:13)
[2023-12-13] MEDS ORDERED: hydrALAZINE 20MG/ML 1ML VIAL IV STA (04:48)
[2023-12-13] MEDS: cloNIDine HCL 0.2 MG/24 HR PATCH TOP STA (05:29)
[2023-12-13] MEDS: HEPARIN SOD (PORCINE) 5000UNITS/ML 1ML VIAL/SYRINGE SC SCH (05:34)
[2023-12-13] MEDS ORDERED: HOME MED LIST COMPLETE! XX SCH (09:05)
[2023-12-13] MEDS ORDERED: VARIBAR PUDDING 40% w/v 230ML TUBE As Ordered ONE (11:26)
[2023-12-13] MEDS ORDERED: E-Z-PAQUE 96% w/w SUSP 176GM BTL As Ordered ONE (11:26)
[2023-12-13] MEDS ORDERED: VARIBAR NECTAR 40% w/v 240ML SUSP BTL As Ordered ONE (11:26)
[2023-12-13] MEDS ORDERED: BARIUM SULFATE 700 MG TABLET (E-Z-DISK) As Ordered ONE (11:27)
[2023-12-13] MEDS: hydrALAZINE 20MG/ML 1ML VIAL IV PRN (12:13)
[2023-12-13] MEDS: hydrALAZINE 20MG/ML 1ML VIAL IV ONE (13:52)
[2023-12-13] MEDS ORDERED: ATROPINE SULFATE 1% OPHTH SOLN 2ML BTL SL PRN (15:10)
[2023-12-13] MEDS ORDERED: LORazepam 2 MG/ML 1ML VIAL IV PRN (15:10)
[2023-12-13] MEDS: MORPHINE 2 MG/ML 1ML VIAL IV PRN (15:58)
[2023-12-13] MEDS: ALBUTEROL SULFATE 2.5MG/0.5ML INH NEB SOLN NEB PRN (20:31)
[2023-12-14] MEDS ORDERED: PERC5TAB12 PO (08:36)
== END 2023-12-14 08:55 | disposition left against medical advice (07) | DRG 147 ==
LOC: M ED 18:58 → EDBD 18:58 → M ED INP 12-13 00:06 → M MSPAV 12-13 01:36 → M PCU 12-13 12:02
PROVIDERS: ADMIT Internal Medicine; ATTEND Internal Medicine
DX: C14.0 Malignant neoplasm of pharynx, unspecified (principal); E44.0 Moderate protein-calorie malnutrition; R64 Cachexia; C78.7 Secondary malignant neoplasm of liver and intrahepatic bile duct; C78.00 Secondary malignant neoplasm of unspecified lung; Z68.1 Body mass index [BMI] 19.9 or less, adult; E87.20 Acidosis, unspecified; C77.0 Secondary and unspecified malignant neoplasm of lymph nodes of head, face and neck; I16.0 Hypertensive urgency; R13.10 Dysphagia, unspecified; C01 Malignant neoplasm of base of tongue; F17.210 Nicotine dependence, cigarettes, uncomplicated; Z66 Do not resuscitate; E78.00 Pure hypercholesterolemia, unspecified; I10 Essential (primary) hypertension; Z98.49 Cataract extraction status, unspecified eye; Z79.899 Other long term (current) drug therapy; Z11.52 Encounter for screening for COVID-19